=== PATIENT | female | born 1950 | race Caucasian/White ===

== ENCOUNTER 2019-07-30 10:24 | Outpatient (CLI) | payer MEDICARE, SELFPAY ==
[2019-07-30 10:36] LABS: Basophils Absolute Auto 0.03 K/mm3 (0.00-0.10); Basophils Percent Auto 0.5 % (0.0-1.0); Eosinophils Absolute Auto 0.07 K/mm3 (0.02-0.50); Eosinophils Percent Auto 1.2 % (1.0-6.0); Hematocrit 39.7 % (35.0-42.0); Immature Granulocyte Absolute 0.02 K/mm3 (0.00-0.00); Immature Granulocyte Percent A 0.3 % (0.0-0.0); Lymphocytes Absolute Auto 1.46 K/mm3 (1.10-4.50); Lymphocytes Percent Auto 25.1 % (18.0-42.0); Mean Corpuscular HGB Conc 32.7 g/dL (32.0-36.0); Mean Corpuscular Hemoglobin 28.6 pg (27.0-31.0); Mean Corpuscular Volume 87.3 fL (78.0-102.0); Mean Platelet Volume 10.6 fl (9.2-11.8); Monocytes Absolute Auto 0.51 K/mm3 (0.10-0.90); Monocytes Percent Auto 8.8 % (2.0-11.0); Neutrophils Absolute Auto 3.7 K/mm3 (1.7-7.2); Neutrophils Percent Auto 64.1 % (50.0-70.0); Platelet Count Result 194 K/mm3 (150-420); Red Blood Count 4.55 M/mm3 (4.20-5.40); Red Cell Distribution Width 14.6 % (11.6-14.4); White Blood Count 5.8 K/mm3 (4.8-10.8)
[2019-07-30 10:39] LABS: Add Urine Microscopic? YES; Appearance Urine Clear (Clear); Bilirubin Urine Negative (Negative); Blood Urine Negative (Negative); Color Urine Yellow (Yellow); Glucose Urine UA Negative (Negative); Ketones Urine Trace (Negative); Leukocyte Esterase Ur Negative (Negative); Nitrate Urine Negative (Negative); Protein Urine Negative (Negative); Specific Grav Ur >= 1.030 (1.010-1.020); pH Urine 5.5 (5.0-8.0)
[2019-07-30 10:43] LABS: Bacteria Urine Trace /hpf; RBC Urine 0-2 /hpf (0-2); Squamous Epithelial Cell Urine Few /hpf (Few); WBC Urine 0-3 /hpf (0-3)
[2019-07-30 11:44] LABS: Alanine Aminotransferase 29 U/L (14-59); Albumin Level 3.9 g/dL (3.4-5.0); Alkaline Phosphatase 66 U/L (46-116); Anion Gap 13.8 mmol/L (7-16); Aspartate Amino Transferase 23 U/L (15-37); Bilirubin,Total 0.5 mg/dL (0.00-1.00); Blood Urea Nitrogen 28 mg/dL (7-18); Calcium 9.4 mg/dL (8.5-10.1); Carbon Dioxide 27 mmol/L (21-32); Chloride 107 mmol/L (98-108); Cholesterol 168 mg/dL (0-200); Creatine Kinase 75 U/L (26-192); Estimated Glomerular Filt Rate > 60; Ferritin 91 ng/mL (8-252); Free T4 Free Thyroxine 1.06 ng/dL (0.76-1.46); Glucose 92 mg/dL (70-99); HDL Direct 72 mg/dL (40-60); Iron 87 ug/dL (50-170); LDL Cholesterol Calculated 78 mg/dL (<130); Osmolality Calculated 303 mOsm/kg (285-295); Percent Iron Saturation 26 % (12-57); Potassium 3.8 mmol/L (3.5-5.1); Sodium 144 mmol/L (136-145); Thyroid Stimulating Hormone 2.22 uIU/mL (0.36-3.74); Total Protein 6.6 g/dL (6.4-8.2); Triglycerides 90 mg/dL (0-150)
[2019-08-01 20:27] LABS: Vitamin D 25 Hydroxy 45 ng/mL (30-100)
== END 2019-07-30 10:25 | disposition home or self-care (01) ==
PROVIDERS: PCP Internal Medicine; Visit Provider Internal Medicine
DX: R53.83 Other fatigue (principal); E78.5 Hyperlipidemia, unspecified; M81.0 Age-related osteoporosis without current pathological fracture; E55.9 Vitamin D deficiency, unspecified; E03.4 Atrophy of thyroid (acquired); E61.1 Iron deficiency
CPT/HCPCS: 36415; 80053; 80061; 81001; 82306; 82550; 82728; 83540; 83550; 84439; 84443; 85025

== ENCOUNTER 2019-08-25 09:31 | Outpatient (CLI) | payer MEDICARE, SELFPAY ==
--- NOTE | ~2019-08-25 | XR_ITS ---
XR hip LT min 2V DATE: 08/25/2019 09:50 INDICATION: Left hip pain. No known injury. TECHNIQUE: AP and lateral views COMPARISON: 01/10/2010 left hip FINDINGS: There is mild narrowing of the left hip joint space. No fracture or dislocation, avascular necrosis or bone destruction. The pubic symphysis and included left sacroiliac joint are intact. IMPRESSION: Mild degenerative change Reviewed, dictated and finalized at location A. IMPRESSION: Mild degenerative change
== END 2019-08-25 09:32 | disposition home or self-care (01) ==
PROVIDERS: PCP Internal Medicine; Visit Provider Internal Medicine
DX: M25.552 Pain in left hip (principal)
CPT/HCPCS: 73502

== ENCOUNTER 2019-10-12 13:56 | Outpatient (CLI) | payer MEDICARE, SELFPAY ==
--- NOTE | ~2019-10-12 | DEXA_ITS ---
BMD(1) Young-Adult(2) Age-Matched(3) Region (g/cm2) T-score Z-score WHO Classification L1 0.899 -2.0 -0.3 Osteopenia L2 0.927 -2.3 -0.7 Osteopenia L3 1.105 -0.9 0.8 Normal L4 1.177 -0.3 1.3 Normal L1-L4 1.042 -1.2 0.4 Osteopenia Trend: L1-L4 Change vs Change vs Measured Age BMD(1) Baseline Previous Date (years) (g/cm2) (%) (%) 10/12/2019 [age] 1.042 -4.3* 2.2 09/20/2016 [age] 1.020 -6.3* 8.3* 01/01/2010 59.4 0.942 -13.5* -13.5* 07[birth year]28/2006 56.0 1.089 baseline - * - Indicates significant change based on 95% confidence interval. 1 - Statistically 68% of repeat scans fall within 1SD (+- 0.010 g/cm2 for AP Spine L1-L4) 2 - [place] (Combined NHANES (ages 20-30) / Phase Holographic Imaging (ages 20-40)) AP Spine Reference Population (v112) 3 - Matched for Age, Weight (females 25-100 kg), Ethnic 11 - World Health Organization - Definition of Osteoporosis and Osteopenia for Women: Normal = T-score at or above -1.0 SD; Osteopenia = T-score between -1.0 and -2.5 SD; Osteoporosis = T-score at or below -2.5 SD; (WHO definitions only apply when a young healthy Women reference database is used to determine T-scores.) Printed: 10/12/2019 2:35:32 PM (13.60)76:3.00:50.00:12.0 0.00:9.54 0.60x1.05 21.2:%Fat=27.9% 0.00:0.00 0.00:0.00 Filename: [id number] Scan Mode: Standard;OneScan 37.[address] [id number] BMD(1) Young-Adult(2,7) Age-Matched(3) Region (g/cm2) T-score Z-score WHO Classification Neck Left 0.738 -2.2 -0.4 Osteopenia Right 0.706 -2.4 -0.7 Osteopenia Mean 0.722 -2.3 -0.5 Osteopenia Difference 0.032 -0.2 -0.2 - Total Left 0.775 -1.8 -0.3 Osteopenia Right 0.768 -1.9 -0.4 Osteopenia Mean 0.772 -1.9 -0.4 Osteopenia Difference 0.007 -0.1 -0.1 - Hip Pepin Length Comparison (mm) (Right = 99.1 mm) (Mean = 102.0 mm) (Left = 98.6 mm) Trend: Total Mean Change vs Change vs Measured Age BMD(1) Baseline Previous Date (years) (g/cm2) (%) (%) 10/12/2019 69.2 0.772 -4.8* -0.3 01/01/2010 59.4 0.774 -4.6* -4.6* 07[birth year]28/2006 56.0 0.811 baseline - * - Indicates significant change based on 95% confidence interval. 1 - Statistically 68% of repeat scans fall within 1SD (+- 0.010 g/cm2 for DualFemur Total) 2 - [place] (Combined NHANES (ages 20-30) / Phase Holographic Imaging (ages 20-40)) Femur Reference Population (v112) 3 - Matched for Age, Weight (females 25-100 kg), Ethnic 7 - DualFemur Total T-score difference is 0.1. Asymmetry is None. 11 - World Health Organization - Definition of Osteoporosis and Osteopenia for Women: Normal = T-score at or above -1.0 SD; Osteopenia = T-score between -1.0 and -2.5 SD; Osteoporosis = T-score at or below -2.5 SD; (WHO definitions only apply when a young healthy Women reference database is used to determine T-scores.) Printed: 10/12/2019 2:35:32 PM (13.60); Filename: [id number]; Right Femur; 17.3:%Fat=24.8%; Neck Angle (deg)= 65; Scan Mode: Standard 37.0 uGy; Left Femur; 16.4:%Fat=29.7%; Neck Angle (deg)= 68; Scan Mode: Standard 37.0 uGy [employer] [id number] Dear Leopoldo Velazquez, Your patient Starla Baird completed a BMD test on 10/12/2019 using the [employer] DXA System (analysis version: 13.60) manufactured by [employer]. The following summa
--- NOTE | ~2019-10-12 | MM_ITS ---
EXAMINATION: MM screening brian BI w kenzie HISTORY: Screening mammogram, family history of breast cancer in her mother. TECHNIQUE: Craniocaudal and mediolateral oblique 3-D tomosynthesis images were obtained and synthetic 2-D images were generated. CAD analysis was submitted and interpreted. COMPARISON: 09/26/2016 BREAST PARENCHYMAL COMPOSITION: There are scattered areas of fibroglandular density. FINDINGS: Scattered benign-appearing calcifications are present. There is no evidence of suspicious m ass, calcification, or architectural distortion to suggest malignancy in either breast. There has bee n no suspicious interval change. IMPRESSION: 1. No mammographic evidence of malignancy. 2. Recommend routine screening mammography in one year. BI-RADS Category 2: Benign finding(s). Reviewed, dictated and finalized at location A.
== END 2019-10-12 13:57 | disposition home or self-care (01) ==
LOC: CHSIMG 13:57
PROVIDERS: PCP Internal Medicine; Visit Provider Internal Medicine
DX: Z12.31 Encounter for screening mammogram for malignant neoplasm of breast (principal); M81.0 Age-related osteoporosis without current pathological fracture
CPT/HCPCS: 77063; 77067; 77080

== ENCOUNTER 2020-08-01 14:47 | Outpatient (RCR) | payer MEDICARE, SELFPAY ==
--- NOTE | 2020-08-01 15:54 | PTOPEVAL ---
Thank you for referring Starla Baird to [facility].? The patient is scheduled to be seen for therapy? ____x/week for ___ weeks. Please review, sign, date and return this plan of care TANYA. I agree with and certify that the following plan of care is medically necessary. Referring Physician Date Admitting Provider: Attending Provider: Leopoldo Velazquez MD Referring Provider: *PT Outpatient Evaluation Start: 08/01/20 14:49 Freq: Status: Active Protocol: Document 08/01/20 14:49 ACR (Rec: 08/01/20 15:42 ACR [id number]) Therapy Assessment Status Assessment Status Assessment Status Evaluation Outpatient Past Medical History Neurological History Hx Neurological Disorders No Significant History Cardiovascular History Hx Cardiac Disorders No Significant History Respiratory History Hx Respiratory Disorders No Significant History Gastrointestinal History Hx Other Gastrointestinal Disorders Yes: gastric reflux Genitourinary History Hx Genitourinary Disorders No Significant History Musculoskeletal History Hx Other Musculoskeletal Disorders Yes: disc 22 yrs ago L ankle 33 yrsa ago Hematological History Hx Hematological Disorders No Significant History Endocrine History Hx Hypothyroidism Yes HEENT History Hx Cataracts Yes: jeremiah surgery 18months ago Hx Meniere's Syndrome Yes Integumentary History Hx Excision Skin Lesion Yes: nose 10months ago Reproductive History Hx Tubal Ligation Yes: 28 yrs ago Psychosocial History Hx Anxiety Yes Pain History History of Any Previous or Ongoing No Significant History Instance of Pain Anesthesia History Hx Anesthesia Reactions No Significant History Other History Hx Cancer Yes: basel cell Hx Other Surgeries Yes: R shoulder 15yrs ago Evaluation Information Problem Diagnosis L hip pain, bursitis Onset 06/03/20 Subjective Information Patient states that for a Query Text:As Reported By Patient/ couple months the pain is off Family and on. Patient states the pain is the worst if she walks or does stairs. Patient states the pain is all the time not just in the morning or in the evening. The pain is not waking her up at night. Patient states that standing for prolonged periods of time does not make it any worse. She states sitting for long periods of time really bother
--- NOTE | 2020-10-20 10:28 | PCPTNOTE ---
The patient is a 70 year old female that participated in 5 visits for L hip pain, bursitis. The patient underwent and MRI which showed gluteus minimus muscle tear and bursitis. She is doing better, but she is following up with her MD soon and is still performing her HEP. She would like to be discharged at this time. Please refer to last treatment note for discharge status. Thank you, Stefany Rahman DPT
== END 2020-09-05 13:28 | disposition home or self-care (01) ==
LOC: CHSPT 14:47
PROVIDERS: PCP Internal Medicine; Visit Provider Internal Medicine
DX: M70.62 Trochanteric bursitis, left hip (principal)
CPT/HCPCS: 97014; 97110; 97140; 97161; G0283

== ENCOUNTER 2020-09-09 08:48 | Outpatient (CLI) | payer MEDICARE, SELFPAY ==
--- NOTE | ~2020-09-09 | MR_ITS ---
EXAMINATION: MR hip LT wo con DATE: 09/09/2020 09:49 INDICATION: Left hip pain. TECHNIQUE: Magnetic resonance imaging (MRI) of the left hip was performed without intravenous contras t. Sequences included axial and coronal PD-weighted FS FSE and axial T1-weighted FSE of the pelvis. S equences of the hip included 2D FIESTA, T1-weighted fast GRE, and axial, coronal, and sagittal PD-moreno ghted FS FSE. COMPARISON: Left hip radiographs 08/25/2019 FINDINGS: Bones/cartilage: Bone alignment is normal. No fracture. There is mild osteoarthritis of the hips bilaterally. Small fi eld-of-view images of left hip demonstrate partial thickness cartilage loss and tiny osteophytes. Labrum: There is a tear of the left acetabular labrum. Fluid: There is no hip joint effusion. There is mild left-sided trochanteric bursitis. Soft tissues: There are chronic partial tears of the hamstring origins bilaterally. The iliopsoas tendons are alice l. There is a partial tear of the left gluteus minimus tendon. The left gluteus medius tendon is inta ct. The right gluteal tendons are obscured by failure of fat saturation. IMPRESSION: 1. No fracture. 2. Mild osteoarthritis of the hips. 3. Partial tears of left gluteus minimus tendon. 4. Mild left trochanteric bursitis. Reviewed, dictated and finalized at location A.
== END 2020-09-09 08:49 | disposition home or self-care (01) ==
LOC: CHSIMG 08:49
PROVIDERS: PCP Internal Medicine; Visit Provider Internal Medicine
DX: M25.552 Pain in left hip (principal)
CPT/HCPCS: 73721

== ENCOUNTER 2021-01-12 11:47 | Outpatient (CLI) | payer MEDICARE, SELFPAY ==
[2021-01-12 13:30] LABS: SARS-CoV-2 RNA PCR Negative (Negative)
== END 2021-01-12 11:48 | disposition home or self-care (01) ==
LOC: CHSLAB 11:50
PROVIDERS: PCP Internal Medicine; Visit Provider Nurse Practitioner Family
DX: Z20.822 Contact with and (suspected) exposure to COVID-19 (principal)
CPT/HCPCS: C9803; U0003; U0005

== ENCOUNTER 2021-03-29 22:25 | Emergency (ER) | payer MEDICARE, SELFPAY ==
[2021-03-29 22:29] VITALS: BP 192/82; PULSE 85; RESP 16; TEMP 36.8; O2SAT 100
--- NOTE | 2021-03-29 22:29 | ECG_ITS ---
Measurements Intervals Celestine Rate: 73 P: 26 VT: 171 QRS: 0 QRSD: 76 T: 50 QT: 394 QTc: 436 Interpretive Statements SINUS RHYTHM VOLTAGE CRITERIA FOR LVH BASELINE ARTIFACT- I, II, III, AVR, AVL, AVF, V2-V6 BORDERLINE ECG Electronically Signed On 03-30-2021 5:40:45 UNIT DIRECTOR by Efraín Lambert D.O.
[2021-03-29 22:34] VITALS: PULSE 85
--- NOTE | 2021-03-29 22:40 | ED.GENADULT ---
HPI - General Adult General Chief complaint: Unspecified Stated complaint: high blood pressure Source: patient Mode of arrival: ambulatory Limitations: no limitations History of Present Illness HPI narrative: Starla is a 70F with a PMH of hypothyroidism, HLD and osteoporosis that presented to the emergency department with elevated BP. She was recently diagnosed at her PCPs office but was not started on meds. Tonight she started having tinglin in her lips and fingers so she took her BP and is was over 200 so she came in. She denies CP, SOB, N/V, lightheadedness and syncope. Related Data Home Medications Medication Instructions Recorded Confirmed alendronate 70 mg PO WEEKLY 04/01/19 04/01/19 atorvastatin 10 mg PO DAILY 04/01/19 04/01/19 citalopram 10 mg PO DAILY 04/01/19 04/01/19 levothyroxine 25 mcg PO DAILY 04/01/19 04/01/19 Allergies Allergy/AdvReac Type Severity Reaction Status Date / Time No Known Allergies Allergy Unknown Verified 05/07/06 16:31 Review of Systems Constitutional: Constitutional: Reports no additional constitutional complaints Eyes: Eyes: Reports no additional eye complaints ENT: Reports system reviewed and no additional complaints, except as documented Cardiovascular: Cardiovascular: Reports as per HPI Respiratory: Respiratory: Reports no additional respiratory complaints Gastrointestinal: Gastrointestinal: Reports no additional gastrointestinal complaints Genitourinary: Genitourinary: Reports no additional female genitourinary complaints Musculoskeletal: Musculoskeletal: Reports no additional musculoskeletal complaints Integumentary/Breasts: Skin/Breast: Reports system reviewed and no additional complaints, except as docu Neurologic: Reports system reviewed and no additional complaints, except as documented Psychiatric: Psychiatric: Reports no additional psychiatric complaints Endocrine: Endocrine: Reports no additional endocrine complaints Hematologic/Lymphatic: Hematologic/Lymphatic: Reports no additional hematologic/lymphatic complaints Allergic/Immunologic: Allergic/Immunologic: Reports no additional allergic/immunologic complaints [facility] Past Medical History Medical History (Updated 03/29/21 @ 23:19 by Jimmy Jones DO) Depression Dyslipidemia Hypothyroid Osteoporosis Surgical History Surgical History History of ankle surgery Social History Social History Smoking status: Never smoker Second hand tobacco smoke exposure: Yes Alcohol intake: current Substance use: never Substance use type: does not use Gender identity (if verbalized by the patient): Female Agree to blood products: Yes Exam Const: General: cooperative, healthy appearing, comfortable and no acute distress HENMT: Head: normal to inspection and normocephalic Eyes: General: appearance normal, both eyes and all related structures Neck: Neck: normal visual inspection Chest: Chest palpation & inspection: normal inspection of the chest Resp: Effort & Inspection: normal respiratory effort Auscultation: clear to auscultation bilaterally Cardio: Rate: regular rate Rhythm: regular rhythm Other: no murmur Back/Spine/Pelvis: Back: no CVA tenderness Skin: General skin exam: normal color and no rashes or lesions noted Neuro: General: oriented to person, oriented to place, oriented to time and gait normal Cranial nerves: Yes CN's II-XII intact bilaterally Cognition (Neuro): normal cognition Speech: normal speech Gait exam (Neuro): Normal gait present Extrem: General: normal to inspection Psych: Appearance: grossly normal Course Course Emergency Course: ordered EKG, labs and gave a dose of amlodipine. EKG showed a NSR with a rate of 73, normal axis, and no ectopy Labs largely unremarkable Vital Signs Vital signs: Vital Signs Temperature 98.2 F 12
[2021-03-29] MEDS: amLODIPine BESYLATE 5 MG TABLET 10 MG PO (22:55)
[2021-03-29 23:10] LABS: Anion Gap 13 mmol/L (8-16); Blood Urea Nitrogen 22 mg/dL (7-18); Calcium 8.9 mg/dL (8.5-10.1); Carbon Dioxide 23 mmol/L (21-32); Chloride 105 mmol/L (98-108); Estimated CRCL calculation 54 ml/min; Estimated Glomerular Filt Rate > 60; Glucose 107 mg/dL (70-99); NT Pro B Type Natriuretic Pept 151 pg/mL (0-125); Osmolality Calculated 295 mOsm/kg (285-295); Potassium 3.9 mmol/L (3.5-5.1); Sodium 141 mmol/L (136-145); Troponin I 7.4 ng/L (0.00-60.4)
[2021-03-29 23:29] VITALS: BP 166/72; PULSE 88; RESP 18; O2SAT 100
== END 2021-03-29 23:30 | disposition home or self-care (01) ==
PROVIDERS: Emergency Provider Family Medicine; PCP Internal Medicine
DX: I16.0 Hypertensive urgency (principal); E78.5 Hyperlipidemia, unspecified; E03.9 Hypothyroidism, unspecified; M81.0 Age-related osteoporosis without current pathological fracture
CPT/HCPCS: 36415; 80048; 83880; 84484; 93005; 99283; 99284; A9270

== ENCOUNTER 2021-04-17 15:17 | Outpatient (CLI) | payer MEDICARE, SELFPAY ==
--- NOTE | 2021-05-03 16:21 | WPDHOLTEREM ---
Holter/Event Monitor Holter/Event Monitor Date of procedure: 04/17/21 Holter/Event Procedure: Event Monitor Indications: Palpitations Conclusion: 1. 13 days event monitor between 04/17/21-05/03/21. There are 27 available transmissions for analysis. 2. Predominant rhythm is sinus rhythm. HR range 46-151 bpm; average HR 65 bpm. HR at 151 bpm was on 04/22/21 at 14:42. 3. There are occasional premature supraventricular complexes with 1% burden. No supraventricular tachycardia. 4. There are occasional premature ventricular complexes with total burden of <1%. There is 1 episode of ventricular tachycardia at 140 bpm lasting 4 beats on 04/27/21 at 01:48. 5. No significant pauses greater than 2 seconds. 6. Patient reports 2 episodes of symptoms of heart racing which demonstrate sinus rhythm, HR range 51-75 bpm and one atrial couplet.
== END 2021-04-17 15:18 | disposition home or self-care (01) ==
LOC: CHSCARD 15:19
PROVIDERS: PCP Internal Medicine; Visit Provider Internal Medicine
DX: R00.2 Palpitations (principal)
CPT/HCPCS: 93270

== ENCOUNTER 2021-05-03 10:10 | Outpatient (CLI) | payer MEDICARE, SELFPAY ==
--- NOTE | 2021-05-03 10:21 | ECHO_ITS ---
Patient Info Name: Starla Baird Age: 70 years : 1950 Gender: Female Ht: 62 in Wt: 145 lbs BSA: 1.71 m2 HR: 57 bpm BP: 122 / 56 mmHg Technical Quality: Good Exam Date: 05/03/2021 11:09 AM Exam Location: [facility] Patient Status: Outpatient Admit Date: 05/03/2021 Staff Ordering Physician: Leopoldo Velazquez MD Mock Up Assembler: Stephanie Landers Attending Provider: Leopoldo Velazquez MD Referring Physician: Marcus SANTOYO; Exam Type: CA echo doppler color flow Study Info Indications I48.1 - Persistent atrial fibrillation Complete two-dimensional, color flow and Doppler transthoracic echocardiogram is performed. Strain analysis performed. Summary 1. Complete two-dimensional, color flow and Doppler transthoracic echocardiogram is performed. 2. Left ventricular chamber dimension is normal. 3. Left ventricular systolic function is normal, estimated at 60-65%. 4. The left ventricular diastolic function is grade I diastolic dysfunction. 5. E/e' 6 is not elevated. 6. Global longitudinal strain is normal at -20.2%. 7. Left atrial chamber dimension is mildly enlarged. 8. There is mild aortic valve sclerosis. 9. There is mild aortic valve regurgitation. 10. There is trace mitral valve regurgitation. 11. There is trace tricuspid valve regurgitation. 12. No pulmonary hypertension, estimated pulmonary arterial systolic pressure is 33 mmHg. Left Ventricle E/e' 6 is not elevated. Global longitudinal strain is normal at -20.2%. Left ventricular chamber dimension is normal. Left ventricular systolic function is normal, estimated at 60-65%. The left ventricular diastolic function is grade I diastolic dysfunction. Right Ventricle Right ventricular systolic function is normal and with normal TAPSE 2.1 cm. Right ventricular chamber dimension is normal. Left Atria Left atrial chamber dimension is mildly enlarged. Right Atria Right atrial chamber dimension is normal. Aortic Valve The aortic valve is trileaflet. There is mild aortic valve sclerosis. There is no aortic valve stenosis. There is mild aortic valve regurgitation. Pulmonic Valve There is no pulmonic regurgitation. Mitral Valve There is no mitral valve stenosis. There is trace mitral valve regurgitation. Tricuspid Valve There is trace tricuspid valve regurgitation. No pulmonary hypertension, estimated pulmonary arterial systolic pressure is 33 mmHg. Pericardium/Pleural There is no pericardial effusion. Inferior Vena Cava Normal inferior vena cava with >50% collapse upon inspiration consistent with normal right atrial pressure, 5 mmHg. Aorta The aortic root size at the sinus of Valsalva is normal. Left Ventricular Outflow Tract Name Value Normal LVOT 2D LVOT Diameter 1.9 cm LVOT Doppler LVOT Peak Velocity 138 cm/s LVOT Peak Gradient 8 mmHg LVOT Mean Gradient 5 mmHg LVOT VTI 35 cm LVOT VTI/AV VTI Ratio 0.9 LVOT Stroke Volume 101 ml Mitral Valve
== END 2021-05-03 10:11 | disposition home or self-care (01) ==
LOC: CHSIMG 10:13
PROVIDERS: PCP Internal Medicine; Visit Provider Internal Medicine
DX: I48.91 Unspecified atrial fibrillation (principal)
CPT/HCPCS: 93306

== ENCOUNTER 2021-09-13 10:47 | Outpatient (CLI) | payer MEDICARE, SELFPAY ==
[2021-09-13 11:07] LABS: Basophils Absolute Auto 0.04 K/mm3 (0.00-0.10); Basophils Percent Auto 0.4 % (0.0-1.0); Eosinophils Absolute Auto 0.12 K/mm3 (0.02-0.50); Eosinophils Percent Auto 1.3 % (1.0-6.0); Hematocrit 41.5 % (35.0-42.0); Hemoglobin 13.6 g/dL (11.7-13.8); Immature Granulocyte Absolute 0.04 K/mm3 (0.00-0.00); Immature Granulocyte Percent A 0.4 % (0.0-0.0); Lymphocytes Absolute Auto 2.68 K/mm3 (1.10-4.50); Mean Corpuscular HGB Conc 32.8 g/dL (32.0-36.0); Mean Corpuscular Hemoglobin 29.3 pg (27.0-31.0); Mean Corpuscular Volume 89.4 fL (78.0-102.0); Mean Platelet Volume 9.9 fl (9.2-11.8); Monocytes Absolute Auto 0.85 K/mm3 (0.10-0.90); Monocytes Percent Auto 8.9 % (2.0-11.0); Neutrophils Absolute Auto 5.8 K/mm3 (1.7-7.2); Platelet Count Result 241 K/mm3 (150-420); Red Blood Count 4.64 M/mm3 (4.20-5.40); Red Cell Distribution Width 13.9 % (11.6-14.4); White Blood Count 9.6 K/mm3 (4.8-10.8)
[2021-09-13 11:15] LABS: Creatinine Urine 194.65 mg/dL (40-278); MALB Creatinine Ratio 31.6 mg/g (0-30); Microalbumin Urine Random 61.7 mg/L
[2021-09-13 11:16] LABS: Appearance Urine Clear (Clear); Bilirubin Urine Negative (Negative); Color Urine Light Yellow (Yellow); Glucose Urine UA Negative (Negative); Ketones Urine Negative (Negative); Leukocyte Esterase Ur 2+ (Negative); Nitrate Urine Negative (Negative); Protein Urine Negative (Negative); Specific Grav Ur 1.025 (1.010-1.020); Urobilinogen Urine 0.2 mg/dL (0.2-1.0)
[2021-09-13 11:24] LABS: Add Urine Microscopic? YES; Blood Urine Trace-Intact (Negative); RBC Urine None seen /hpf (0-2); Squamous Epithelial Cell Urine Moderate /hpf (Few)
[2021-09-13 11:25] LABS: Bacteria Urine Trace /hpf; Mucus Urine Moderate /lpf
[2021-09-13 11:50] LABS: Alanine Aminotransferase 31 U/L (14-59); Albumin Level 3.9 g/dL (3.4-5.0); Alkaline Phosphatase 87 U/L (46-116); Anion Gap 11 mmol/L (8-16); Aspartate Amino Transferase 18 U/L (15-37); Bilirubin,Total 0.7 mg/dL (0.00-1.00); Blood Urea Nitrogen 15 mg/dL (7-18); Carbon Dioxide 27 mmol/L (21-32); Chloride 104 mmol/L (98-108); Cholesterol 191 mg/dL (0-200); Creatine Kinase 59 U/L (26-192); Estimated Glomerular Filt Rate > 60; Free T3 2.17 pg/mL (2.18-3.98); Free T4 Free Thyroxine 0.98 ng/dL (0.76-1.46); Glucose 103 mg/dL (70-99); HDL Direct 56 mg/dL (40-60); LDL Cholesterol Calculated 103 mg/dL (<130); NT Pro B Type Natriuretic Pept 121 pg/mL (0-125); Osmolality Calculated 294 mOsm/kg (285-295); Potassium 3.7 mmol/L (3.5-5.1); Sodium 142 mmol/L (136-145); Thyroid Stimulating Hormone 4.56 uIU/mL (0.36-3.74); Total Protein 7.5 g/dL (6.4-8.2); Triglycerides 159 mg/dL (0-150)
[2021-09-13 12:00] LABS: CRP < 0.2 mg/dL (0.0-0.9)
[2021-09-13 12:11] LABS: INR 1.3; Prothrombin Time 13.7 Seconds (9.50-12.10)
[2021-09-13 12:21] LABS: Erythrocyte Sedimentation Rate 41 mm/hr (0-20)
[2021-09-18 19:31] LABS: Vitamin D 25 Hydroxy 48 ng/mL (30-100)
== END 2021-09-13 10:48 | disposition home or self-care (01) ==
LOC: CHSLAB 10:50
PROVIDERS: PCP Internal Medicine; Visit Provider Internal Medicine
DX: R53.82 Chronic fatigue, unspecified (principal); I10 Essential (primary) hypertension; M81.0 Age-related osteoporosis without current pathological fracture; E03.9 Hypothyroidism, unspecified; E78.2 Mixed hyperlipidemia; I48.0 Paroxysmal atrial fibrillation; I50.9 Heart failure, unspecified; Z79.01 Long term (current) use of anticoagulants
CPT/HCPCS: 36415; 80053; 80061; 81001; 82043; 82306; 82550; 83880; 84439; 84443; 84481; 85025; 85610; 85652; 86140

== ENCOUNTER 2021-10-30 11:51 | Outpatient (CLI) | payer MEDICARE, SELFPAY ==
[2021-10-30 12:13] LABS: Add Urine Microscopic? YES; Appearance Urine Clear (Clear); Bilirubin Urine Negative (Negative); Blood Urine 1+ (Negative); Color Urine Light Yellow (Yellow); Glucose Urine UA Negative (Negative); Ketones Urine Negative (Negative); Leukocyte Esterase Ur 1+ (Negative); Nitrate Urine Negative (Negative); Protein Urine Negative (Negative); Specific Grav Ur 1.025 (1.010-1.020); Urobilinogen Urine 0.2 mg/dL (0.2-1.0)
[2021-10-30 12:17] LABS: Bacteria Urine Trace /hpf; Mucus Urine Moderate /lpf; Squamous Epithelial Cell Urine Few /hpf (Few)
[2021-10-30 12:55] LABS: Alanine Aminotransferase 33 U/L (14-59); Alkaline Phosphatase 86 U/L (46-116); Anion Gap 9 mmol/L (8-16); Aspartate Amino Transferase 21 U/L (15-37); Bilirubin,Total 0.6 mg/dL (0.00-1.00); Blood Urea Nitrogen 14 mg/dL (7-18); Carbon Dioxide 27 mmol/L (21-32); Chloride 104 mmol/L (98-108); Cholesterol 182 mg/dL (0-200); Estimated Glomerular Filt Rate > 60; Free T3 2.37 pg/mL (2.18-3.98); Free T4 Free Thyroxine 1.15 ng/dL (0.76-1.46); Glucose 101 mg/dL (70-99); HDL Direct 57 mg/dL (40-60); LDL Cholesterol Calculated 99 mg/dL (<130); Osmolality Calculated 290 mOsm/kg (285-295); Potassium 3.9 mmol/L (3.5-5.1); Sodium 140 mmol/L (136-145); Thyroid Stimulating Hormone 1.33 uIU/mL (0.36-3.74); Total Protein 6.8 g/dL (6.4-8.2); Triglycerides 129 mg/dL (0-150)
[2021-10-30 13:29] LABS: INR 3.2; Prothrombin Time 32.1 Seconds (9.50-12.10)
[2021-11-03 21:40] LABS: Vitamin D 25 Hydroxy 60 ng/mL (30-100)
== END 2021-10-30 11:52 | disposition home or self-care (01) ==
LOC: CHSLAB 11:53
PROVIDERS: PCP Internal Medicine; Visit Provider Internal Medicine
DX: E03.9 Hypothyroidism, unspecified (principal); E78.2 Mixed hyperlipidemia; M81.0 Age-related osteoporosis without current pathological fracture; N39.0 Urinary tract infection, site not specified; Z79.01 Long term (current) use of anticoagulants
CPT/HCPCS: 36415; 80053; 80061; 81001; 82306; 84439; 84443; 84481; 85610; 87086

== ENCOUNTER 2021-11-20 12:27 | Outpatient (CLI) | payer MEDICARE, SELFPAY ==
--- NOTE | ~2021-11-20 | DEXA_ITS ---
Bone Density Report Name: CLOVIS HERRERA Age: 71 Sex: Female Ethnicity: White Date of : 1950 Indication: postmenopausal; screening for osteoporosis; height loss; prior fracture; Referring Provider: Leopoldo Velazquez Study: Bone densitometry was performed. Exam Date: November 20, 2021 Accession number: [id number] Bone Density: Region BMD T-score Z-score Classification AP Spine(L1, L2, L3) 0.867 -1.4 0.9 Osteopenia Femoral Neck (Left) 0.628 -2.0 0.0 Osteopenia Total Hip (Left) 0.767 -1.4 0.3 Osteopenia Femoral Neck (Right) 0.615 -2.1 -0.1 Osteopenia Total Hip (Right) 0.744 -1.6 0.1 Osteopenia Femoral Neck Mean 0.621 -2.1 -0.1 Osteopenia Total Hip Mean 0.755 -1.5 0.2 Osteopenia World Health Organization criteria for BMD impression classify patients as: Normal (T-score at or above -1.0), Osteopenia (T-score between -1.0 and -2.5), or Osteoporosis (T-score at or below -2.5). 10-year Fracture Risk: FRAX not reported because: Treated for osteoporosis Clinical Information Provided by Patient: Has had a low trauma fracture Is being treated for osteoporosis Has used the following medications: Fosamax (i.e. alendronate), Vitamin D Patient maximum height was 62 Menopause Age: 48 No regular weight bearing exercise Drinks caffeinated beverages Onset of menses at age 12 Number of children 6 Impression: The patient has low bone mass, based on the Right Femoral Neck T-score. The patient has risk factors, including: previous fracture. Discussion: It is important to ask patients whether they are taking their medications and to encourage continued and appropriate compliance with their osteoporosis therapies to reduce fracture risk. It is also important to review their risk factors and encourage appropriate calcium and vitamin D intakes, exercise, fall prevention and other lifestyle measures. Follow-Up: Consider a repeat BMD and Vertebral Fracture Assessment (VFA) exam in 2 years or sooner if medically necessary, to reassess this patient's status. Reported by: Dr. David Ruffin on 11/20/2021 12:52:00 PM. Reviewed, dictated and finalized at location AChuckie LI
== END 2021-11-20 12:28 | disposition home or self-care (01) ==
LOC: CHSIMG 12:30
PROVIDERS: PCP Internal Medicine; Visit Provider Internal Medicine
DX: M81.0 Age-related osteoporosis without current pathological fracture (principal)
CPT/HCPCS: 77080

== ENCOUNTER 2022-01-18 12:20 | Outpatient (CLI) | payer MEDICARE, SELFPAY ==
--- NOTE | ~2022-01-18 | CT_ITS ---
EXAMINATION: CT sinus wo con DATE: 01/18/2022 12:36 INDICATION: Chronic pansinusitis TECHNIQUE: Computed tomography (CT) of the paranasal sinuses was performed without intravenous contra st. The dose-length product was 328.15 mGy-cm. Automated exposure control and iterative reconstructio n technique were employed. COMPARISON: CT dated 04/02/2019 FINDINGS: There is mild mucosal thickening of the maxillary sinuses. No air-fluid levels. No mucoperi osteal reaction. There is rightward nasal septal deviation. Ostiomeatal units are patent. Mastoids ar e pneumatized. IMPRESSION: 1. Mild maxillary sinus disease. Reviewed, dictated and finalized at location A.
== END 2022-01-18 12:21 | disposition home or self-care (01) ==
LOC: CHSIMG 12:22
PROVIDERS: PCP Internal Medicine; Visit Provider Internal Medicine
DX: J32.4 Chronic pansinusitis (principal)
CPT/HCPCS: 70486

== ENCOUNTER 2022-03-28 11:49 | Outpatient (CLI) | payer MEDICARE, SELFPAY ==
[2022-03-28 12:56] LABS: Influenza A QL RT-PCR Negative (Negative); Influenza B QL RT-PCR Negative (Negative); SARS-CoV-2 RNA PCR Negative (Negative)
== END 2022-03-28 11:50 | disposition home or self-care (01) ==
LOC: CHSLAB 11:50
PROVIDERS: PCP Internal Medicine; Visit Provider Family Medicine
DX: J06.9 Acute upper respiratory infection, unspecified (principal); Z20.822 Contact with and (suspected) exposure to COVID-19
CPT/HCPCS: 87636

== ENCOUNTER 2022-05-10 14:26 | Outpatient (CLI) | payer MEDICARE, SELFPAY ==
[2022-05-10 14:44] LABS: Basophils Absolute Auto 0.05 K/mm3 (0.00-0.10); Basophils Percent Auto 0.6 % (0.0-1.0); Eosinophils Absolute Auto 0.07 K/mm3 (0.02-0.50); Eosinophils Percent Auto 0.8 % (1.0-6.0); Hematocrit 43.3 % (35.0-42.0); Hemoglobin 14.1 g/dL (11.7-13.8); Immature Granulocyte Absolute 0.03 K/mm3 (0.00-0.00); Immature Granulocyte Percent A 0.4 % (0.0-0.0); Lymphocytes Absolute Auto 2.71 K/mm3 (1.10-4.50); Lymphocytes Percent Auto 31.7 % (18.0-42.0); Mean Corpuscular HGB Conc 32.6 g/dL (32.0-36.0); Mean Corpuscular Hemoglobin 29.9 pg (27.0-31.0); Mean Corpuscular Volume 91.9 fL (78.0-102.0); Mean Platelet Volume 9.8 fl (9.2-11.8); Monocytes Absolute Auto 0.71 K/mm3 (0.10-0.90); Monocytes Percent Auto 8.3 % (2.0-11.0); Neutrophils Percent Auto 58.2 % (50.0-70.0); Platelet Count Result 257 K/mm3 (150-420); Red Blood Count 4.71 M/mm3 (4.20-5.40); Red Cell Distribution Width 13.9 % (11.6-14.4); White Blood Count 8.6 K/mm3 (4.8-10.8)
[2022-05-10 14:46] LABS: Add Urine Microscopic? YES; Appearance Urine Clear (Clear); Bilirubin Urine Negative (Negative); Blood Urine Negative (Negative); Color Urine Yellow (Yellow); Glucose Urine UA Negative (Negative); Ketones Urine Negative (Negative); Leukocyte Esterase Ur Trace (Negative); Nitrate Urine Negative (Negative); Protein Urine Negative (Negative); Specific Grav Ur >= 1.030 (1.010-1.020); Urobilinogen Urine 0.2 mg/dL (0.2-1.0); pH Urine 5.5 (5.0-8.0)
[2022-05-10 14:56] LABS: Bacteria Urine 1+ /hpf; Mucus Urine Moderate /lpf; RBC Urine None seen /hpf (0-2); Squamous Epithelial Cell Urine Few /hpf (Few)
[2022-05-10 15:09] LABS: Hemoglobin A1C 5.4 % (<5.7)
[2022-05-10 15:29] LABS: Alanine Aminotransferase 33 U/L (14-59); Albumin Level 4.1 g/dL (3.4-5.0); Alkaline Phosphatase 128 U/L (46-116); Anion Gap 9 mmol/L (8-16); Aspartate Amino Transferase 19 U/L (15-37); Bilirubin,Total 0.7 mg/dL (0.00-1.00); Blood Urea Nitrogen 17 mg/dL (7-18); Calcium 9.2 mg/dL (8.5-10.1); Carbon Dioxide 30 mmol/L (21-32); Chloride 104 mmol/L (98-108); Cholesterol 201 mg/dL (0-200); Estimated Glomerular Filt Rate > 60; Free T4 Free Thyroxine 1.05 ng/dL (0.76-1.46); Glucose 105 mg/dL (70-99); HDL Direct 53 mg/dL (40-60); LDL Cholesterol Calculated 114 mg/dL (<130); Osmolality Calculated 297 mOsm/kg (285-295); Potassium 3.8 mmol/L (3.5-5.1); Sodium 143 mmol/L (136-145); Thyroid Stimulating Hormone 2.32 uIU/mL (0.36-3.74); Total Protein 7.4 g/dL (6.4-8.2); Triglycerides 168 mg/dL (0-150)
== END 2022-05-10 14:27 | disposition home or self-care (01) ==
LOC: CHSLAB 14:29
PROVIDERS: PCP Internal Medicine; Visit Provider Internal Medicine
DX: E78.2 Mixed hyperlipidemia (principal); I10 Essential (primary) hypertension; I48.0 Paroxysmal atrial fibrillation; E03.9 Hypothyroidism, unspecified; R73.01 Impaired fasting glucose
CPT/HCPCS: 36415; 80053; 80061; 81001; 83036; 84439; 84443; 85025

== ENCOUNTER 2022-11-07 12:18 | Outpatient (CLI) | payer MEDICARE, SELFPAY ==
[2022-11-07 12:31] LABS: Basophils Absolute Auto 0.05 K/mm3 (0.00-0.10); Basophils Percent Auto 0.7 % (0.0-1.0); Eosinophils Absolute Auto 0.09 K/mm3 (0.02-0.50); Eosinophils Percent Auto 1.2 % (1.0-6.0); Hematocrit 42.2 % (35.0-42.0); Immature Granulocyte Absolute 0.02 K/mm3 (0.00-0.00); Immature Granulocyte Percent A 0.3 % (0.0-0.0); Lymphocytes Absolute Auto 2.21 K/mm3 (1.10-4.50); Lymphocytes Percent Auto 29.6 % (18.0-42.0); Mean Corpuscular HGB Conc 33.2 g/dL (32.0-36.0); Mean Corpuscular Hemoglobin 28.7 pg (27.0-31.0); Mean Corpuscular Volume 86.7 fL (78.0-102.0); Mean Platelet Volume 10.1 fl (9.2-11.8); Monocytes Absolute Auto 0.63 K/mm3 (0.10-0.90); Monocytes Percent Auto 8.4 % (2.0-11.0); Neutrophils Absolute Auto 4.5 K/mm3 (1.7-7.2); Neutrophils Percent Auto 59.8 % (50.0-70.0); Platelet Count Result 224 K/mm3 (150-420); Red Blood Count 4.87 M/mm3 (4.20-5.40); Red Cell Distribution Width 13.9 % (11.6-14.4); White Blood Count 7.5 K/mm3 (4.8-10.8)
[2022-11-07 12:38] LABS: Appearance Urine Clear (Clear); Bilirubin Urine Negative (Negative); Blood Urine Trace-Intact (Negative); Color Urine Yellow (Yellow); Glucose Urine UA Negative (Negative); Ketones Urine Negative (Negative); Leukocyte Esterase Ur Trace (Negative); Nitrate Urine Negative (Negative); Protein Urine Negative (Negative); Specific Grav Ur 1.025 (1.010-1.020)
[2022-11-07 12:45] LABS: Add Urine Microscopic? YES; RBC Urine 0-2 /hpf (0-2); WBC Urine 0-3 /hpf (0-3)
[2022-11-07 12:46] LABS: Bacteria Urine Trace /hpf; Mucus Urine Few /lpf; Squamous Epithelial Cell Urine Moderate /hpf (Few)
[2022-11-07 13:18] LABS: Alanine Aminotransferase 22 U/L (14-59); Albumin Level 3.7 g/dL (3.4-5.0); Alkaline Phosphatase 99 U/L (46-116); Anion Gap 7 mmol/L (8-16); Aspartate Amino Transferase 13 U/L (15-37); Bilirubin,Total 0.8 mg/dL (0.00-1.00); Blood Urea Nitrogen 21 mg/dL (7-18); Calcium 9.2 mg/dL (8.5-10.1); Carbon Dioxide 31 mmol/L (21-32); Chloride 105 mmol/L (98-108); Cholesterol 216 mg/dL (0-200); Creatine Kinase 37 U/L (26-192); Estimated Glomerular Filt Rate > 60; Free T3 2.21 pg/mL (2.18-3.98); Free T4 Free Thyroxine 1.03 ng/dL (0.76-1.46); Glucose 94 mg/dL (70-99); HDL Direct 55 mg/dL (40-60); LDL Cholesterol Calculated 136 mg/dL (<130); NT Pro B Type Natriuretic Pept 123 pg/mL (0-125); Osmolality Calculated 299 mOsm/kg (285-295); Potassium 4.2 mmol/L (3.5-5.1); Sodium 143 mmol/L (136-145); Thyroid Stimulating Hormone 2.83 uIU/mL (0.36-3.74); Total Protein 6.7 g/dL (6.4-8.2); Triglycerides 123 mg/dL (0-150)
== END 2022-11-07 12:19 | disposition home or self-care (01) ==
LOC: CHSLAB 12:20
PROVIDERS: PCP Internal Medicine; Visit Provider Internal Medicine
DX: I10 Essential (primary) hypertension (principal); E78.2 Mixed hyperlipidemia; E03.9 Hypothyroidism, unspecified; M81.0 Age-related osteoporosis without current pathological fracture; I48.0 Paroxysmal atrial fibrillation; I50.9 Heart failure, unspecified
CPT/HCPCS: 36415; 80053; 80061; 81001; 82550; 83880; 84439; 84443; 84481; 85025

== ENCOUNTER 2023-02-06 12:57 | Outpatient (CLI) | payer MEDICARE, SELFPAY ==
--- NOTE | ~2023-02-06 | MM_ITS ---
EXAMINATION: MM screening brian BI w kenzie HISTORY: Screening mammogram, family history of breast cancer in her mother. TECHNIQUE: Craniocaudal and mediolateral oblique 3-D tomosynthesis images were obtained and synthetic 2-D images were generated. CAD analysis was submitted and interpreted. COMPARISON: 10/12/2019, 09/26/2016 BREAST PARENCHYMAL COMPOSITION: There are scattered areas of fibroglandular density. FINDINGS: Scattered benign-appearing calcifications are present. No suspicious mass, calcification, o r architectural distortion are identified in either breast to suggest malignancy. There has been no s uspicious interval change. IMPRESSION: 1. No mammographic evidence of malignancy. 2. Recommend routine screening mammography in one year. BI-RADS Category 2: Benign finding(s). Reviewed, dictated and finalized at location A.
--- NOTE | ~2023-02-06 | DEXA_ITS ---
Bone Density Report Name: CLOVIS HERRERA Age: 72 Sex: Female Ethnicity: White Date of : 1950 Indication: postmenopausal; screening for osteoporosis; height loss; prior fracture; Referring Provider: Leopoldo Velazquez Study: Bone densitometry was performed. Exam Date: February 06, 2023 Accession number: [id number] Bone Density: Region BMD T-score Z-score Classification AP Spine(L1, L2, L3) 0.857 -1.5 0.9 Osteopenia Femoral Neck (Left) 0.584 -2.4 -0.3 Osteopenia Total Hip (Left) 0.742 -1.6 0.1 Osteopenia Femoral Neck (Right) 0.580 -2.4 -0.4 Osteopenia Total Hip (Right) 0.716 -1.9 -0.1 Osteopenia Femoral Neck Mean 0.582 -2.4 -0.3 Osteopenia Total Hip Mean 0.729 -1.7 0.0 Osteopenia World Health Organization criteria for BMD impression classify patients as: Normal (T-score at or above -1.0), Osteopenia (T-score between -1.0 and -2.5), or Osteoporosis (T-score at or below -2.5). 10-year Fracture Risk: FRAX not reported because: Treated for osteoporosis Clinical Information Provided by Patient: Has had a low trauma fracture Is being treated for osteoporosis Has used the following medications: Fosamax (i.e. alendronate), Prolia (i.e. denosumab), Vitamin D Patient maximum height was 62 Menopause Age: 48 No regular weight bearing exercise Drinks caffeinated beverages Onset of menses at age 12 Number of children 6 Impression: The patient has low bone mass, based on the Left Femoral Neck T-score. The patient has risk factors, including: previous fracture. Discussion: It is important to ask patients whether they are taking their medications and to encourage continued and appropriate compliance with their osteoporosis therapies to reduce fracture risk. It is also important to review their risk factors and encourage appropriate calcium and vitamin D intakes, exercise, fall prevention and other lifestyle measures. Follow-Up: Consider a repeat BMD and Vertebral Fracture Assessment (VFA) exam in 2 years or sooner if medically necessary, to reassess this patient's status. Reported by: Dr. Moy Tobin on 02/06/2023 1:50:00 PM. Reviewed, dictated and finalized at location A.
== END 2023-02-06 12:58 | disposition home or self-care (01) ==
LOC: CHSIMG 12:58
PROVIDERS: PCP Internal Medicine; Visit Provider Internal Medicine
DX: Z12.31 Encounter for screening mammogram for malignant neoplasm of breast (principal); Z78.0 Asymptomatic menopausal state; M85.89 Other specified disorders of bone density and structure, multiple sites
CPT/HCPCS: 77063; 77067; 77080

== ENCOUNTER 2023-02-17 08:58 | Outpatient (CLI) | payer MEDICARE, SELFPAY ==
--- NOTE | 2023-03-12 00:45 | WPDSLEEPSTUD ---
Sleep Study Date of Study: 02/17/23 Ordering Provider: Swati Diaz Interpreting Physician: Mary Hyman DO Sleep Study Type: Split Polysomnogram Height: 1.55 m Weight: 65.771 kg Body Mass Index: 27.3 Neck Circumference (inches): 15 [place]: 3 Reason for Sleep Study Daytime hypersomnia ? 08/28/19 ? [facility] Sleep test showed mild sleep apnea with AHI 9.2.? Sleep History Patient is a 72 year old female with history of atrial fibrillation who underwent a sleep study for re-evaluation of sleep apnea. The primary care provider note states she was diagnosed with sleep apnea over 3 years ago and was intolerant to CPAP therapy (tried 3 months), and recommended repeating sleep study to see if she may qualify for [facility]. The record states patient may be willing to re-attempt CPAP depending on the severity of her sleep apnea.? She occasionally awakens from sleep short of breath. She never awakens at night with heartburn, belching or cough.? She frequently snores and occasionally snores loudly enough that others complain. She occasionally has trouble sleeping when she has a cold. She occasionally suddenly wakes up gasping for breath during the night. She occasionally has breathing problems at night. She occasionally sweats excessively at night. She occasionally notices her heart pounding or beating irregularly during the night. She frequently falls asleep during the day. She never falls asleep involuntarily.? She never falls asleep while driving. She never experiences loss of muscle tone with strong emotion. She rarely feels paralyzed on waking or falling asleep. She frequently experiences vivid dreams upon waking or falling asleep. She does not feel afraid of going to sleep. She frequently has nightmares. She frequently recalls her dreams. She occasionally has thoughts racing through her mind. She occasionally feels sad or depressed. She rarely feels anxiety or worry about things. She rarely notices parts of her body jerk. She never kicks during the night. She never feels crawling or aching feelings in her legs. She never feels leg pain at night. She never grinds her teeth during sleep and never has morning jaw pain. She never feels bothered by pain during the day and is never awakened by pain during the night. She rarely wakes with pain in her neck, spine, or joints. ? Normal bedtime is around 9pm on the weekdays and 8pm on the weekends, taking variable amounts of time to fall asleep. Her wake up time is around 6am on the weekdays and same on the weekends. She typically wakes up several, awake a few minutes and she will go to the bathroom and go back to bed.? Habits:? Never tobacco smoker. Drinks about 2 caffeinated beverages per day. No alcohol or recreational substances.? [facility] Past Medical History Medical History (Updated 03/12/23 @ 00:55 by Mary Hyman DO) Depression Dyslipidemia Hypothyroid Osteoporosis Surgical History Surgical History History of ankle surgery Social History Social History Smoking status: Never smoker Second hand tobacco smoke exposure: Yes Alcohol intake: current Substance use: never Substance use type: does not use Gender identity (if verbalized by the patient): Female Agree to blood products: Yes Medications Home Medications Medication Instructions Recorded Confirmed Type alendronate 70 mg tablet 70 mg PO WEEKLY 04/01/19 04/01/19 History atorvastatin 10 mg tablet 10 mg PO DAILY 04/01/19 04/01/19 History citalopram 10 mg tablet 10 mg PO DAILY 04/01/19 04/01/19 History levothyroxine 25 mcg tablet 25 mcg PO DAILY 04/01/19 04/01/19 History ciprofloxacin HCl 500 mg tablet 500 mg PO Q12H 7 days #14 tabs 04/02/19 Rx loperamide 2 mg capsule 2 mg PO Q4H PRN loose stool #14 04/02/19 Rx caps ondansetron HCl 8 mg tablet 8 mg PO Q12H #20 tabs 04/02/19 Rx (Zofran)
[2023-03-12 00:47] VITALS: BMI 27.3
== END 2023-02-18 07:11 | disposition home or self-care (01) ==
LOC: ANHCSM 09:00
PROVIDERS: PCP Internal Medicine
DX: G47.33 Obstructive sleep apnea (adult) (pediatric) (principal)
CPT/HCPCS: 95811

== ENCOUNTER 2023-05-30 11:34 | Outpatient (CLI) | payer MEDICARE, SELFPAY ==
[2023-05-30 12:21] LABS: Basophils Absolute Auto 0.06 K/mm3 (0.00-0.10); Basophils Percent Auto 0.7 % (0.0-1.0); Eosinophils Absolute Auto 0.11 K/mm3 (0.02-0.50); Eosinophils Percent Auto 1.3 % (1.0-6.0); Hematocrit 44.1 % (35.0-42.0); Hemoglobin 14.2 g/dL (11.7-13.8); Immature Granulocyte Absolute 0.05 K/mm3 (0.00-0.00); Immature Granulocyte Percent A 0.6 % (0.0-0.0); Lymphocytes Absolute Auto 2.54 K/mm3 (1.10-4.50); Lymphocytes Percent Auto 29.2 % (18.0-42.0); Mean Corpuscular HGB Conc 32.2 g/dL (32.0-36.0); Mean Corpuscular Hemoglobin 28.2 pg (27.0-31.0); Mean Corpuscular Volume 87.7 fL (78.0-102.0); Mean Platelet Volume 9.9 fl (9.2-11.8); Monocytes Absolute Auto 0.78 K/mm3 (0.10-0.90); Neutrophils Absolute Auto 5.2 K/mm3 (1.7-7.2); Neutrophils Percent Auto 59.2 % (50.0-70.0); Platelet Count Result 267 K/mm3 (150-420); Red Blood Count 5.03 M/mm3 (4.20-5.40); Red Cell Distribution Width 14.6 % (11.6-14.4); White Blood Count 8.7 K/mm3 (4.8-10.8)
[2023-05-30 13:07] LABS: Appearance Urine Clear (Clear); Bilirubin Urine Negative (Negative); Blood Urine Trace-Intact (Negative); Color Urine Light Yellow (Yellow); Glucose Urine UA Negative (Negative); Ketones Urine Negative (Negative); Leukocyte Esterase Ur 1+ LEU/UL (Negative); Nitrate Urine Negative (Negative); Protein Urine Negative (Negative); Specific Grav Ur >= 1.030 (1.010-1.020); Urobilinogen Urine 0.2 mg/dL (0.2-1.0); pH Urine 5.5 (5.0-8.0)
[2023-05-30 13:13] LABS: Add Urine Microscopic? YES; RBC Urine 0-2 /hpf (0-2); Squamous Epithelial Cell Urine Few /hpf (Few)
[2023-05-30 13:14] LABS: Bacteria Urine 1+ /hpf; Mucus Urine Few /lpf
[2023-05-30 13:40] LABS: Alanine Aminotransferase 37 U/L (14-59); Albumin Level 3.9 g/dL (3.4-5.0); Alkaline Phosphatase 138 U/L (46-116); Anion Gap 10 mmol/L (8-16); Aspartate Amino Transferase 22 U/L (15-37); Bilirubin,Total 0.8 mg/dL (0.00-1.00); Blood Urea Nitrogen 22 mg/dL (7-18); Calcium 9.1 mg/dL (8.5-10.1); Carbon Dioxide 28 mmol/L (21-32); Chloride 104 mmol/L (98-108); Estimated Glomerular Filt Rate 60; Free T3 2.45 pg/mL (2.18-3.98); Glucose 98 mg/dL (70-99); HDL Direct 58 mg/dL (40-60); Osmolality Calculated 297 mOsm/kg (285-295); Potassium 4.1 mmol/L (3.5-5.1); Sodium 142 mmol/L (136-145); Thyroid Stimulating Hormone 2.95 uIU/mL (0.36-3.74); Total Protein 7.2 g/dL (6.4-8.2); Triglycerides 209 mg/dL (0-150)
[2023-05-30 14:33] LABS: Creatine Kinase 40 U/L (26-192); Free T4 Free Thyroxine 0.87 ng/dL (0.76-1.46)
[2023-05-30 14:45] LABS: Cholesterol 227 mg/dL (0-200); LDL Cholesterol Calculated 127 mg/dL (<130)
[2023-06-02 21:29] LABS: Vitamin D 25 Hydroxy 87 ng/mL (30-100)
== END 2023-05-30 11:35 | disposition home or self-care (01) ==
LOC: CHSLAB 11:36
PROVIDERS: PCP Internal Medicine; Visit Provider Internal Medicine
DX: N39.0 Urinary tract infection, site not specified (principal); E78.2 Mixed hyperlipidemia; E03.9 Hypothyroidism, unspecified; E55.9 Vitamin D deficiency, unspecified; I10 Essential (primary) hypertension; R82.90 Unspecified abnormal findings in urine
CPT/HCPCS: 36415; 80053; 80061; 81001; 82306; 82550; 84439; 84443; 84481; 85025; 87086; 87088

== ENCOUNTER 2023-11-11 14:29 | Outpatient (RCR) | payer MEDICARE, SELFPAY ==
--- NOTE | 2023-10-15 16:12 | PCPTNOTE ---
Patient called & cancelled scheduled appointment this date. No reason given. -Laney Serna, PT
--- NOTE | 2023-11-11 15:30 | OPREHPOC ---
Outpatient Therapy Plan of Care This is a Multidisciplinary Plan of Care that may contain components documented by all disciplines (PT, OT, and ST.) PT Problem 1 PT Problem #1 Knowledge Deficit PT Goal 1 Goal 1. independent and compliant with HEP Target Visit 2 PT Problem 2 PT Problem #2 Pain PT Goal 1 Goal 1. no pain in the last week Target Visit 3 PT Problem 3 PT Problem #3 Impaired Strength PT Goal 1 Goal 1. 4+/5 or better R shoulder flex 2. 4+/5 or better R shoulder ER PT Problem 4 PT Problem #4 Impaired Functional Mobil PT Goal 1 Goal 1. quick dash to display 0% functional deficits 2. patient to return to house and yard work without pain. Target Visit 3
--- NOTE | 2023-11-11 15:30 | PTOPEVAL1 ---
Assessment and note entered by JT File, PT Evaluation Information Assessment Status Evaluation Subjective Information patient reports she injured the R shoulder while trying to lift a 30lb bag of dirt over a 4-5ft high fence. she reports she felt a pop when this happened about 3 weeks ago. she reports she is feeling better now. she reports she does not have much pain, but will get achy when cold air blows on the shoulder. she reports she also has aching in the arm when leans on the R side in a chair. she reports she does have increased pain as well with pushing open a door, grabbing a blanket onto her body, and pushing a blanket off her body. she reports she has had no imaging of the R Shoulder. she reports she was put on meds to help her sleep initially. she reports she has been using a heating pad and tens unit at home. Reported Pain Level Pain Score 0: Self Report Assessment PT Clinical Summary mrs. daniels is a 73 yo woman who presents to skilled PT services for evaluation and treatment of R shoulder pain. she had an injury pushing a heavy bag of soil over a tall fence. she presents now with decreased pain and symptoms, but some residual aching/pain and weakness. she displays signs and symptoms consistent with a RTC tendonitis/impingement with weakness of the R shoulder and pain in impingement positions/motions . she would benefit from continued skilled PT to address her objective/functional deficits and progress towards a return to her prior level functional activity performance/quality of life. Plan of Care Interventions Electrical Stimulation,Hot Pack/Cold Pack,Manual Therapy,Neuro Re-education,Patient/Caregiver Educati,Therapeutic Activities,Therapeutic Exercise PT Services Indicated Yes Treatment Frequency and 1x weekly for 3 visits Duration These treatments will address the objective and functional deficits as defined above. The patient will be advanced safely and appropriately in order for the patient to progress towards his/her prior level of function. Additional exercises will be introduced and as well as a comprehensive home exercise program upon discharge, if needed, ?to ensure carryover of functional gains achieved in the clinic. This treatment plan has been reviewed and agreement upon by the patient.
--- NOTE | 2023-11-21 14:16 | PCPTNOTE ---
Patient called & cancelled scheduled appointment this date due to patient not feeling well. Will call to schedule on 11/24/23. -Laney Serna PT
--- NOTE | 2023-12-01 13:53 | PCPTNOTE ---
Cancelled session. Pt reports she cannot make it today and will call back later to reschedule.
== END 2023-11-11 15:21 | disposition home or self-care (01) ==
LOC: CHSPT 14:29
PROVIDERS: Visit Provider Nurse Practitioner Family
DX: M25.511 Pain in right shoulder (principal)
CPT/HCPCS: 97014; 97110; 97161; G0283

== ENCOUNTER 2023-12-03 13:17 | Outpatient (CLI) | payer MEDICARE, SELFPAY ==
[2023-12-03 13:30] LABS: Basophils Absolute Auto 0.05 K/mm3 (0.00-0.10); Basophils Percent Auto 0.5 % (0.0-1.0); Eosinophils Absolute Auto 0.09 K/mm3 (0.02-0.50); Eosinophils Percent Auto 0.9 % (1.0-6.0); Hematocrit 41.7 % (35.0-42.0); Hemoglobin 14.2 g/dL (11.7-13.8); Immature Granulocyte Absolute 0.05 K/mm3 (0.00-0.00); Immature Granulocyte Percent A 0.5 % (0.0-0.0); Lymphocytes Absolute Auto 2.51 K/mm3 (1.10-4.50); Mean Corpuscular HGB Conc 34.1 g/dL (32-36); Mean Corpuscular Hemoglobin 29.4 pg (27.0-31.0); Mean Corpuscular Volume 86.3 fL (78.0-102.0); Monocytes Absolute Auto 0.81 K/mm3 (0.10-0.90); Monocytes Percent Auto 8.4 % (2.0-11.0); Neutrophils Absolute Auto 6.13 K/mm3 (1.70-7.20); Neutrophils Percent Auto 63.7 % (50.0-70.0); Platelet Count Result 256 K/mm3 (150-420); Red Blood Count 4.83 M/mm3 (4.20-5.40); Red Cell Distribution Width 14.3 % (11.6-14.4); White Blood Count 9.6 K/mm3 (4.8-10.8)
[2023-12-03 13:31] LABS: Add Urine Microscopic? YES; Appearance Urine Clear (Clear); Bilirubin Urine Negative (Negative); Blood Urine 1+ (Negative); Glucose Urine UA Negative (Negative); Ketones Urine Negative (Negative); Leukocyte Esterase Ur 2+ (Negative); Nitrate Urine Negative (Negative); Protein Urine 1+ (Negative); Specific Grav Ur >= 1.030 (1.010-1.020); Urobilinogen Urine 0.2 mg/dL (0.2-1.0)
[2023-12-03 13:38] LABS: Bacteria Urine 3+ /hpf; Color Urine Yellow (Yellow); Mucus Urine Moderate /lpf; Squamous Epithelial Cell Urine Moderate /hpf (Few); WBC Urine 31-50 /hpf (0-3)
[2023-12-03 14:27] LABS: Alanine Aminotransferase 33 U/L (14-59); Albumin Level 3.9 g/dL (3.4-5.0); Alkaline Phosphatase 129 U/L (46-116); Anion Gap 14 mmol/L (4-12); Aspartate Amino Transferase 29 U/L (15-37); Bilirubin,Total 0.7 mg/dL (0.00-1.00); Blood Urea Nitrogen 15 mg/dL (7-18); Calcium 8.7 mg/dL (8.5-10.1); Carbon Dioxide 24 mmol/L (21-32); Chloride 102 mmol/L (98-108); Cholesterol 197 mg/dL (0-200); Creatine Kinase 49 U/L (26-192); Estimated Glomerular Filt Rate > 60; Free T3 2.41 pg/mL (2.18-3.98); Free T4 Free Thyroxine 0.91 ng/dL (0.76-1.46); Glucose 111 mg/dL (70-99); HDL Direct 47 mg/dL (40-60); LDL Cholesterol Calculated 102 mg/dL (<130); NT Pro B Type Natriuretic Pept 136 pg/mL (0-450); Osmolality Calculated 291 mOsm/kg (285-295); Potassium 4.1 mmol/L (3.5-5.1); Sodium 140 mmol/L (136-145); Thyroid Stimulating Hormone 2.48 uIU/mL (0.36-3.74); Total Protein 6.9 g/dL (6.4-8.2); Triglycerides 241 mg/dL (0-150)
== END 2023-12-03 13:18 | disposition home or self-care (01) ==
LOC: CHSLAB 13:20
PROVIDERS: PCP Internal Medicine; Visit Provider Internal Medicine
DX: R53.82 Chronic fatigue, unspecified (principal); I10 Essential (primary) hypertension; J32.4 Chronic pansinusitis; I48.0 Paroxysmal atrial fibrillation; E03.9 Hypothyroidism, unspecified; I50.9 Heart failure, unspecified
CPT/HCPCS: 36415; 80053; 80061; 81001; 82550; 83880; 84439; 84443; 84481; 85025

== ENCOUNTER 2024-01-02 11:52 | Outpatient (CLI) | payer MEDICARE, SELFPAY ==
--- NOTE | ~2024-01-02 | XR_ITS ---
XR shoulder RT min 2V 01/02/2024 12:12 Indication: Right shoulder pain Procedure: 3 views right shoulder Comparison: 07/23/2006 Findings: There is moderate polyarticular osteoarthritis the right shoulder. No fracture, subluxation or dislocation. No significant soft tissue abnormality. No foreign bodies. Impression: 1: Moderate polyarticular osteoarthritis of the right shoulder. Reviewed, dictated and finalized at location B. Impression: 1: Moderate polyarticular osteoarthritis of the right shoulder.
== END 2024-01-02 11:53 | disposition home or self-care (01) ==
LOC: CHSIMG 11:54
PROVIDERS: PCP Internal Medicine; Visit Provider Internal Medicine
DX: M25.511 Pain in right shoulder (principal); M19.011 Primary osteoarthritis, right shoulder
CPT/HCPCS: 73030

== ENCOUNTER 2024-02-21 10:38 | Outpatient (CLI) | payer MEDICARE, SELFPAY ==
--- NOTE | ~2024-02-21 | MR_ITS ---
EXAMINATION: MR shoulder RT wo con DATE: 02/21/2024 11:42 INDICATION: Right shoulder pain. Injury. TECHNIQUE: Magnetic resonance imaging (MRI) of the right shoulder was performed without intravenous c ontrast. Sequences included axial PD-weighted FS FSE, coronal oblique PD-weighted FS FSE and T2-weigh eric FS FSE, and sagittal oblique T2-weighted FS FSE and T1-weighted FSE. COMPARISON: Right shoulder radiographs 01/02/2024 FINDINGS: Coracoacromial arch: The acromion undersurface is convex in morphology (type IV). There is severe acromioclavicular joint osteoarthritis. There is moderate subacromial/subdeltoid bursitis. Rotator cuff: There is a full-thickness tear of supraspinatus and infraspinatus tendons measuring 2.0 cm anterior t o posterior by 2.9 cm proximal to distal. Teres minor tendon is normal. There is severe subscapularis tendinopathy with articular-sided partial tear. There is mild fatty atrophy of the subscapularis mus sj belly. Biceps tendon and glenoid labrum: Biceps tendon is partially medially displaced from the distal groove into the subscapularis tendon te ar. There is mild intra-articular biceps tendinopathy. There is degenerative fraying of the glenoid l abrum. Fluid: There is a small glenohumeral joint effusion. Bones/cartilage: There is deep partial-thickness cartilage loss of posterior inferior glenoid. There is shallow partia l-thickness cartilage loss of humeral head. Osteophytes are noted. IMPRESSION: 1. Full-thickness rotator cuff tear. 2. Moderate glenohumeral joint chondrosis. 3. Severe acromioclavicular joint osteoarthritis. 4. Partial medial displacement of biceps tendon from the bicipital groove into the subscapularis tend on tear. Mild biceps tendinopathy. 5. Small glenohumeral joint effusion and moderate subacromial/subdeltoid bursitis. Reviewed, dictated and finalized at location A. ITALITY DIRECTOR IMPRESSION: 1. Full-thickness rotator cuff tear. 2. Moderate glenohumeral joint chondrosis. 3. Severe acromioclavicular joint osteoarthritis. 4. Partial medial displacement of biceps tendon from the bicipital groove into the subscapularis tendon tear. Mild biceps tendinopathy. 5. Small glenohumeral joint effusion and moderate subacromial/subdeltoid bursit is.
== END 2024-02-21 10:39 | disposition home or self-care (01) ==
LOC: CHSIMG 10:38
PROVIDERS: PCP Internal Medicine; Visit Provider Internal Medicine
DX: M25.511 Pain in right shoulder (principal); M94.211 Chondromalacia, right shoulder; M19.011 Primary osteoarthritis, right shoulder; M25.411 Effusion, right shoulder; M67.813 Other specified disorders of tendon, right shoulder; M75.51 Bursitis of right shoulder
CPT/HCPCS: 73221

== ENCOUNTER 2024-07-13 12:57 | Outpatient (CLI) | payer MEDICARE, SELFPAY ==
--- NOTE | ~2024-07-13 | CT_ITS ---
CT sinus wo con Ordering provider: Riki Sanches M.D. History: . Sensorineural hearing loss, bilateral, chronic sinusitis . Comparison: None. Technique: Thin slice Scans CT of the paranasal sinuses was performed with coronal and sagittal refor matted images. No IV contrast. . Automated exposure control and iterative reconstruction technique w ere employed. The dose-length product was 343.37 mGy-cm. Findings: NASAL SEPTUM: Mild left nasal septal deviation. OSTEOMEATAL UNITS: Bilaterally patent. NASAL TURBINATES AND NASOPHARYNX: Normal. PARANASAL SINUSES: Right maxillary sinus disease. VISUALIZED MASTOIDS: Normal as visualized. BONES: Normal. SUPERFICIAL SOFT TISSUES/VISUALIZED BRAIN PARENCHYMA: Normal. IMPRESSION: Mild left nasal septal deviation. Right maxillary sinus disease. Reviewed, dictated and finalized at location A.
--- OUTSIDE RECORDS SUMMARY | 2024-07-13 14:18 | XMS_ITS | Referral Summary ---
Author Organization [facility] [address] Address [address] [place] [address] Care Team Providers Care Intelligence Specialist Name Role Phone Leopoldo Velazquez MD Primary Care Provider [phone] Encounters Date Type Department Care Team Description 05/27/2024 Orders Only [facility] Orthopedic and Sports Medicine [address] [place] [phone] Wei Cantu MD Rotator cuff arthropathy of right shoulder (Primary Dx) 05/26/2024 3:00 PM BOX TOE CUTTER Office Visit [facility] Orthopedic and Sports Medicine [address] [place] [phone] Wei Cantu MD Rotator cuff arthropathy of right shoulder (Primary Dx) from Last 3 Months Allergies No known active allergies Medications atorvastatin (LIPITOR) 10 mg tablet 1 Active levothyroxine (SYNTHROID) 25 mcg tablet 2 Active escitalopram (LEXAPRO) 20 mg tablet 2 Active amLODIPine (NORVASC) 10 mg tablet 2 Active metoprolol tartrate (LOPRESSOR) 25 mg immediate release tablet 2 Active alendronate (FOSAMAX) 70 mg tablet Take 1 tablet (70 mg total) by mouth every 7 days Take in the morning with a full glass of water, on an empty stomach, and do not take anything else by mouth or lie down for the next 30 min. Active BUDESONIDE INHAL Inhale Act antione denosumab (PROLIA SUBQ) Inject under the skin Active apixaban (ELIQUIS) 5 mg tablet 1 tablet (5 mg total) Active losartan (COZAAR) 25 mg tabletIndications :Essential hypertension Take one pill as needed if systolic blood pressure above 150 30 tablet 3 2 Active Active Problems Problem Noted Date Diagnosed Date Chronic maxillary sinusitis 04/02/2022 PAF (paroxysmal atrial fibrillation) 05/07/2021 Essential hypertension 05/07/2021 Chronic anticoagulation 05/07/2021 Social History Tobacco Use Types Packs/Day Years Used Date Smoking Tobacco: Never Smokeless Tobacco: Never Comments Unknown Sex and Gender Information Value Date Recorded Sex Assigned at Not on file Legal Sex Female 10:37 AM BOX TOE CUTTER Gender Identity Not on file Sexual Orientation Not on file Last Filed Vital Signs Vital Sign Reading Time Taken Comments Blood Pressure 133/84 05/26/2024 4:10 PM BOX TOE CUTTER Pulse 69 05/26/2024 4:10 PM BOX TOE CUTTER Temperature - - Respiratory Rate 18 04/02/2022 3:19 PM BOX TOE CUTTER Oxygen Saturation 98% 05/07/2021 9:16 AM BOX TOE CUTTER Inhaled Oxygen Concentration - - Weight 71.7 kg (158 lb) 05/26/2024 4:10 PM BOX TOE CUTTER Height 157.5 cm (5' 2 ) 05/26/2024 4:10 PM BOX TOE CUTTER Body Mass Index 28.9 05/26/2024 4:10 PM BOX TOE CUTTER Plan of Treatment Not on file Insurance MEDICARE UHC MEDICARE ADVANTAGE [facility] MEDICARE Care Teams Intelligence Specialist Relationship Specialty Start Date End Date Leopoldo Velazquez MD [address] [place] [address] PCP - General Internal Medicine 05/03/21
--- OUTSIDE RECORDS SUMMARY | 2024-07-13 14:18 | XMS_ITS | Clinical Summary ---
Author Organization [facility] Address [facility] [place] [address] Care Team Providers Care Maintenance Service Technician Name Role Phone Unavailable Primary Care Provider Unavailabl e Social History Tobacco Use Types Packs/Day Years Used Date Smoking Tobacco: Never Assessed Comments Unknown Sex and Gender Information Value Date Recorded Sex Assigned at Not on file Legal Sex Female 5:57 PM CHIEF OF STAFF DOCTOR Gender Identity Not on file Sexual Orientation Not on file Plan of Treatment Health Maintenance Due Date Last Done Comments Colorectal Cancer Screening Colonoscopy (10 Years) 1948 Hepatitis C 1966 DTaP, Tdap and Td Vaccines ( 1 - Tdap) 07/13/1967 Zoster Vaccines (1 of 2) 1998 Annual Medicare Wellness Visit 2013 Dexa Scan (General) 2013 Pneumococcal Vaccine: 65+ Ye ars (1 of 1 - PCV) 2013 RSV Immunization or 60+ Years (1 - 1-dose 75+ series) 07/13/2023 COVID-19 Vaccine (1 - 2023-2 5 season) 2023 Meningococcal B Vaccine Aged Out No l onger eligible based on patient's age to complete this topic Meningococcal Vaccine Aged Out No mike марина eligible based on patient's age to complete this topic RSV Immunizations Under 20 Months Aged Out No longer eligible based on patient's age to complete this topic Insurance [employer]
--- OUTSIDE RECORDS SUMMARY | 2024-07-13 14:18 | XMS_ITS | Encounter Summary ---
Author Organization [facility] Address [facility] [place] [address] Care Team Providers Care Photography Spotter Name Role Phone Unavailable Primary Care Provider Unavailabl e Encounter Details Date Type Department Care Team (Late st Contact Info) Description 09/12/2018 Abstract SFL CONVERSION [address] [place] [address] , Generic Conversion, Social History Tobacco Use Types Packs/Day Years Used Date Smoking Tobacco: Never Assessed Comments Unknown Sex and Gender Information Value Date Recorded Sex Assigned at Not on file Legal Sex Female 5:57 PM CLIENT RELATIONS SPECIALIST Gender Identity Not on file Sexual Orientation Not on file documented as of this encounter Plan of Treatment Not on file documented as of this encounter Visit Diagnoses Not on filedocumented in this encounter
--- OUTSIDE RECORDS SUMMARY | 2024-07-13 14:18 | XMS_ITS | Clinical Summary ---
Author Organization [facility] [address] Address [address] [place] [address] Care Team Providers Care Shape Hand Name Role Phone Leopoldo Velazquez MD Primary Care Provider + [phone] Allergies No known active allergies Medications atorvastatin [...] 05/07/2021 Essential hypertension 05/07/2021 Chronic anticoagulation 05/07/2021 Encounters Date Type Department Care Team Description 05/27/2024 Orders Only [facility] Orthopedic and Sports Medicine [address] [place] [phone] Wei Cantu MD Rotator cuff arthropathy of right shoulder (Primary Dx) 05/26/2024 3:00 PM PRODUCTION HONING MACHINE OPERATOR Office Visit [facility] Orthopedic and Sports Medicine [address] [place] [phone] Wei Cantu MD Rotator cuff arthropathy of right shoulder (Primary Dx) from Last 3 Months Surgical History Surgery Date Site/Laterality Comments SHOULDER ARTHROSCOPY 04/07/1995 - 04/06/1996 Right ESOPHAGOGASTRODUODENOSCOPY ANKLE SURGERY Left Medical History Medical History Date Comments PSVT (paroxysmal supraventricular tachycardia) A-fib (HCC) Thyroid disease Sleep apnea Hypertension Hyperlipidemia Trigger finger Allergic rhinitis Family History Medical History Relation Name Comments Cancer Father Kidney disease Mother Relation Name Status Comments Father (Age 90) Mother (Age 89) Social History Tobacco Use Types Packs/Day Years Used Date Smoking Tobacco: Never Smokeless Tobacco: Never Comments Unknown Sex and Gender Information Value Date Recorded Sex Assigned at Not on file Legal Sex Female 10:37 AM PRODUCTION HONING MACHINE OPERATOR Gender Identity Not on file Sexual Orientation Not on file Obstetrics History Last Filed Vital Signs Vital Sign Reading Time Taken Comments Blood Pressure 133/84 05/26/2024 4:10 PM PRODUCTION HONING MACHINE OPERATOR Pulse 69 05/26/2024 4:10 PM PRODUCTION HONING MACHINE OPERATOR Temperature - - Respiratory Rate 18 04/02/2022 3:19 PM PRODUCTION HONING MACHINE OPERATOR Oxygen Saturation 98% 05/07/2021 9:16 AM PRODUCTION HONING MACHINE OPERATOR Inhaled Oxygen Concentration - - Weight 71.7 kg (158 lb) 05/26/2024 4:10 PM PRODUCTION HONING MACHINE OPERATOR Height 157.5 cm (5' 2 ) 05/26/2024 4:10 PM PRODUCTION HONING MACHINE OPERATOR Body Mass Index 28.9 05/26/2024 4:10 PM PRODUCTION HONING MACHINE OPERATOR Plan of Treatment Health Maintenance Due Date Last Done Comments Colon Cancer Screening-Colonoscopy 1948 Depression Screening 1948 Fall Risk Assessment 1950 Hepatitis C Screening 1948 Osteoporosis Screening-Bone Density Scan 1948 Hepatitis B Screening 1966 Zoster Vaccine (1 of 2) 1998 Well Visit 65+ 2013 Pneumococcal vaccine 65+ (2 of 2 - PPSV23) 04/15/2019 04/15/2018 Covid-19 Vaccine (3 - 2023-2 5 season) 2023 10/17/2020, 09/25/2020 Influenza Vaccine (#1) 2023 9, 02/03/2014, 01/27/2013, Additional history exists DTaP/Tdap/Td Vaccine (6 - Td or Tdap) 02/04/2024 02/03/2014, 09/04/2001, 05/24/1997, Additional history exists Insurance [facility] MEDICARE [facility] MEDICARE ADVANTAGE [facility] Address: [address] [address] [place] [address] [facility] MED[facility] Care Teams Shape Hand Relationship Specialty Start Date End Date Leopoldo Velazquez MD [address] [place] [address] PCP - General Internal Medicine 05/03/21
== END 2024-07-13 12:58 | disposition home or self-care (01) ==
PROVIDERS: PCP Internal Medicine; Visit Provider Otolaryngology
DX: H93.19 Tinnitus, unspecified ear (principal); H90.3 Sensorineural hearing loss, bilateral; H69.90 Unspecified Eustachian tube disorder, unspecified ear; J01.01 Acute recurrent maxillary sinusitis; J34.2 Deviated nasal septum; J32.0 Chronic maxillary sinusitis
CPT/HCPCS: 70486

== ENCOUNTER 2024-07-23 14:24 | Outpatient (CLI) | payer MEDICARE, SELFPAY ==
--- OUTSIDE RECORDS SUMMARY | 2024-07-23 14:28 | XMS_ITS | Encounter Summary ---
Author Organization [facility] Address [facility] [place] [address] Care Team Providers Care Energy Crop Farmer Name Role Phone Unavailable Primary Care Provider Unavailabl e Encounter Details Date Type Department Care Team (Late st Contact Info) Description 09/12/2018 Abstract SFL CONVERSION [address] [place] [address] , Generic Conversion, Social History Tobacco Use Types Packs/Day Years Used Date Smoking Tobacco: Never Assessed Comments Unknown Sex and Gender Information Value Date Recorded Sex Assigned at Not on file Legal Sex Female 5:57 PM SERVICE PARTS DRIVER Gender Identity Not on file Sexual Orientation Not on file documented as of this encounter Plan of Treatment Not on file documented as of this encounter Visit Diagnoses Not on filedocumented in this encounter
--- OUTSIDE RECORDS SUMMARY | 2024-07-23 14:28 | XMS_ITS | Referral Summary ---
Author Organization [facility] [address] Address [address] [place] [address] Care Team Providers Care Sales Professional Bilingual Name Role Phone Leopoldo Velazquez MD Primary Care Provider + [phone] Encounters Date Type Department Care Team Description 05/27/2024 Orders Only [facility] Orthopedic and Sports Medicine [address] [place] [phone] Wei Cantu MD Rotator cuff arthropathy of right shoulder (Primary Dx) 05/26/2024 3:00 PM VACUUM FURNACE OPERATOR Office Visit [facility] Orthopedic and Sports Medicine [address] [place] [phone] Wei Cantu MD Rotator cuff arthropathy [...] on file Legal Sex Female 10:37 AM VACUUM FURNACE OPERATOR Gender Identity Not on file Sexual Orientation Not on file Last Filed Vital Signs Vital Sign Reading Time Taken Comments Blood Pressure 133/84 05/26/2024 4:10 PM VACUUM FURNACE OPERATOR Pulse 69 05/26/2024 4:10 PM VACUUM FURNACE OPERATOR Temperature - - Respiratory Rate 18 04/02/2022 3:19 PM VACUUM FURNACE OPERATOR Oxygen Saturation 98% 05/07/2021 9:16 AM VACUUM FURNACE OPERATOR Inhaled Oxygen Concentration - - Weight 71.7 kg (158 lb) 05/26/2024 4:10 PM VACUUM FURNACE OPERATOR Height 157.5 cm (5' 2 ) 05/26/2024 4:10 PM VACUUM FURNACE OPERATOR Body Mass Index 28.9 05/26/2024 4:10 PM VACUUM FURNACE OPERATOR Plan of Treatment Not on file Insurance [facility] Address: [facility] [id number] [place] [phone] UHC MEDICARE ADVANTAGE [facility] MEDIC[facility] Address: [address] [address] [place] [address] [facility] MED[facility] Care Teams Sales Professional Bilingual Relationship Specialty Start Date End Date Leopoldo Velazquez MD [address] [place] [address] PCP - General Internal Medicine 05/03/21
--- OUTSIDE RECORDS SUMMARY | 2024-07-23 14:28 | XMS_ITS | Clinical Summary ---
Author Organization [facility] Address [facility] [place] [address] Care Team Providers Care Digital Pre Press Operator Name Role Phone Unavailable Primary Care Provider Unavailabl e Social History Tobacco Use Types Packs/Day Years Used Date Smoking Tobacco: Never Assessed Comments Unknown Sex and Gender Information Value Date Recorded Sex Assigned at Not on file Legal Sex Female 5:57 PM PRODUCTION CHECKER Gender Identity Not on file Sexual Orientation Not on file Plan of Treatment Health Maintenance Due Date Last Done Comments Hepatitis C 1966 DTaP, Tdap and Td Vaccines ( 1 - Tdap) 07/13/1967 Zoster Vaccines (1 of 2) 1998 Annual Medicare Wellness Visit 2013 Dexa Scan (General) 2013 Pneumococcal Vaccine: 50+ Ye ars (1 of 1 - PCV) 2013 RSV Immunization or 60+ Years (1 - 1-dose 75+ series) 07/13/2023 COVID-19 Vaccine ( - 2023-2 5 season) 2023 Meningococcal B [...]
--- OUTSIDE RECORDS SUMMARY | 2024-07-23 14:28 | XMS_ITS | Clinical Summary ---
Author Organization [facility] [address] Address [address] [place] [address] Care Team Providers Care Milk Inspector Name Role Phone Leopoldo Velazquez MD Primary Care Provider + [phone] Allergies No known active allergies Medications atorvastatin [...] Department Care Team Description 05/27/[address] [facility] Orthopedic and Sports Medicine [address] [place] [phone] Wei Cantu MD Rotator cuff arthropathy of right shoulder (Primary Dx) 05/26/2024 3:00 PM TURKEY EGG GATHERER Office Visit [facility] Orthopedic and Sports Medicine [address] [place] [phone] Wei Cantu MD Rotator cuff arthropathy of [...] on file Legal Sex Female 10:37 AM TURKEY EGG GATHERER Gender Identity Not on file Sexual Orientation Not on file Obstetrics History Last Filed Vital Signs Vital Sign Reading Time Taken Comments Blood Pressure 133/84 05/26/2024 4:10 PM TURKEY EGG GATHERER Pulse 69 05/26/2024 4:10 PM TURKEY EGG GATHERER Temperature - - Respiratory Rate 18 04/02/2022 3:19 PM TURKEY EGG GATHERER Oxygen Saturation 98% 05/07/2021 9:16 AM TURKEY EGG GATHERER Inhaled Oxygen Concentration - - Weight 71.7 kg (158 lb) 05/26/2024 4:10 PM TURKEY EGG GATHERER Height 157.5 cm (5' 2 ) 05/26/2024 4:10 PM TURKEY EGG GATHERER Body Mass Index 28.9 05/26/2024 4:10 PM TURKEY EGG GATHERER Plan of Treatment Health Maintenance Due Date [...] 02/03/2014, 09/04/2001, 05/24/1997, Additional history exists Insurance [facility] MEDICARE ADVANTAGE [facility] Care Teams Milk Inspector Relationship Specialty Start Date End Date Leopoldo Velazquez MD [address] [place] [address] PCP - General Internal Medicine 05/03/21
[2024-07-23 14:48] LABS: Add Urine Microscopic? YES; Appearance Urine Sl Cloudy (Clear); Bilirubin Urine 1+ (Negative); Blood Urine Negative (Negative); Color Urine Yellow (Yellow); Glucose Urine UA Negative (Negative); Hematocrit 42.3 % (35.0-42.0); Hemoglobin 13.7 g/dL (11.7-13.8); Ketones Urine 1+ (Negative); Leukocyte Esterase Ur Negative LEU/UL (Negative); Mean Corpuscular HGB Conc 32.4 g/dL (32-36); Mean Corpuscular Hemoglobin 28.4 pg (27.0-31.0); Mean Corpuscular Volume 87.6 fL (78.0-102.0); Mean Platelet Volume 10.4 fl (9.2-11.8); Nitrate Urine Negative (Negative); Platelet Count Result 267 K/mm3 (150-420); Protein Urine Negative (Negative); Red Blood Count 4.83 M/mm3 (4.20-5.40); Specific Grav Ur 1.025 (1.010-1.020); Urobilinogen Urine 0.2 mg/dL (0.2-1.0); White Blood Count 7.7 K/mm3 (4.8-10.8); pH Urine 5.5 (5.0-8.0)
[2024-07-23 14:55] LABS: Bacteria Urine Trace /hpf; RBC Urine None seen /hpf (0-2); Squamous Epithelial Cell Urine Many /hpf (Few); WBC Urine 0-3 /hpf (0-3)
[2024-07-23 14:59] LABS: Hemoglobin A1C 5.8 % (<5.7)
[2024-07-23 15:16] LABS: Alanine Aminotransferase 28 U/L (14-59); Alkaline Phosphatase 91 U/L (46-116); Anion Gap 10 mmol/L (4-12); Aspartate Amino Transferase 22 U/L (15-37); Bilirubin,Total 0.7 mg/dL (0.00-1.00); Blood Urea Nitrogen 20 mg/dL (7-18); Calcium 9.1 mg/dL (8.5-10.1); Carbon Dioxide 27 mmol/L (21-32); Chloride 106 mmol/L (98-108); Cholesterol 180 mg/dL (0-200); Creatine Kinase 86 U/L (26-192); Estimated Glomerular Filt Rate > 60; Free T4 Free Thyroxine 1.22 ng/dL (0.76-1.46); Glucose 99 mg/dL (70-99); HDL Direct 61 mg/dL (40-60); LDL Cholesterol Calculated 100 mg/dL (<130); Osmolality Calculated 298 mOsm/kg (285-295); Sodium 143 mmol/L (136-145); Thyroid Stimulating Hormone 2.03 uIU/mL (0.36-3.74); Triglycerides 95 mg/dL (0-150)
[2024-07-23 15:18] LABS: Free T3 2.37 pg/mL (2.18-3.98)
== END 2024-07-23 14:25 | disposition home or self-care (01) ==
PROVIDERS: PCP Internal Medicine; Visit Provider Internal Medicine
DX: E03.9 Hypothyroidism, unspecified (principal); I48.0 Paroxysmal atrial fibrillation; E78.2 Mixed hyperlipidemia; I10 Essential (primary) hypertension; J32.4 Chronic pansinusitis; R53.82 Chronic fatigue, unspecified; R73.01 Impaired fasting glucose
CPT/HCPCS: 36415; 80053; 80061; 81001; 82550; 83036; 84439; 84443; 84481; 85027

== ENCOUNTER 2024-08-19 14:31 | Outpatient (CLI) | payer MEDICARE, SELFPAY ==
--- NOTE | ~2024-08-19 | DEXA_ITS ---
Bone Density Report Name: CLOVIS HERRERA Age: 74 Sex: Female Ethnicity: White Date of : 1950 Indication: osteopenia; monitoring treatment; height loss; Referring Provider: Leopoldo Velazquez Study: Bone densitometry was performed. Exam Date: August 19, 2024 Accession number: [id number] Bone Density: Region BMD T-score Z-score Classification AP Spine(L2, L3, L4) 0.977 -0.9 1.6 Normal Femoral Neck (Left) 0.581 -2.4 -0.3 Osteopenia Total Hip (Left) 0.775 -1.4 0.5 Osteopenia Femoral Neck (Right) 0.592 -2.3 -0.2 Osteopenia Total Hip (Right) 0.808 -1.1 0.7 Osteopenia Femoral Neck Mean 0.587 -2.4 -0.2 Osteopenia Total Hip Mean 0.792 -1.2 0.6 Osteopenia World Health Organization criteria for BMD impression classify patients as: Normal (T-score at or above -1.0), Osteopenia (T-score between -1.0 and -2.5), or Osteoporosis (T-score at or below -2.5). 10-year Fracture Risk: FRAX not reported because: Treated for osteoporosis Previous Exams: Region Exam Age BMD T-score BMD Change BMD Change Date g/cm2 vs Baseline vs Previous AP Spine (L2-L4) 08/19/2024 74 0.977 -0.9 -0.015 (-1.5%) 0.022 (2.3%)# 10/12/2019 69 0.955 -1.1 -0.037 (-3.7%) 0.035 (3.8%)* 09/20/2016 66 0.920 -1.4 -0.072 (-7.2%) 0.059 (6.9%)* 01/01/2010 59 0.861 -2.0 -0.131 (-13.2% -0.131 (-13.2% 07/28/2006 56 0.992 -0.8 Total Hip(Left) 08/19/2024 74 0.775 -1.4 0.041 (5.6%)# 0.033 (4.5%)* 02/06/2023 72 0.742 -1.6 0.008 (1.1%)# -0.025 (-3.2%) 11/20/2021 71 0.767 -1.4 0.033 (4.5%)# 0.051 (7.1%)# 10/12/2019 69 0.716 -1.9 -0.018 (-2.4%) 0.023 (3.3%) 09/20/2016 66 0.693 -2.0 -0.041 (-5.6%) 0.000 (0.0%) 01/01/2010 59 0.693 -2.0 -0.041 (-5.5%) -0.041 (-5.5%) 07/28/2006 56 0.734 -1.7 Total Hip(Right) 08/19/2024 74 0.808 -1.1 0.041 (5.3%)# 0.092 (12.8%)* 02/06/2023 72 0.716 -1.9 -0.051 (-6.6%) -0.028 (-3.7%) 11/20/2021 71 0.744 -1.6 -0.023 (-3.0%) 0.035 (4.9%)# 10/12/2019 69 0.709 -1.9 -0.058 (-7.6%) -0.027 (-3.7%) 01/01/2010 59 0.736 -1.7 -0.031 (-4.0%) -0.031 (-4.0%) 07/28/2006 56 0.767 -1.4 *Denotes significance at 95% confidence level, LSC for AP Spine = 0.022 g/cm2, LSC for Total Hip = 0.027 g/cm2 # Denotes dissimilar scan types or analysis methods Clinical Information Provided by Patient: Is being treated for osteoporosis Has used the following medications: Prolia (i.e. denosumab), Vitamin D, Calcium Patient maximum height was 62 Menopause Age: 48 No regular weight bearing exercise Onset of menses at age 10 Number of children 6 Impression: The patient has low bone mass, based on the Left Femoral Neck T-score. No significant bone loss was observed. Discussion: PATIENT UNDER TREATMENT WITH NO SIGNIFICANT BMD LOSS SINCE LAST EXAM. In an untreated patient, BMD typically declines with age. A lack of decline or gain is usually a sign that treatment is efficacious and fracture risk is reduced. It is important to ask patients whether they are taking their medications and to encourage continued and appropriate compliance with their osteoporosis therapies to reduce fracture risk. It is also important to review their risk factors and encourage appropriate calcium and vitamin D intakes, exercise, fall prevention and other lifestyle measures. Follow-Up: Consider a repeat BMD and Vertebral Fracture Assessment (VFA) exam in 2 years or sooner if medically necessary, to reassess this patient's status. Reported by: MERCEDES on 08/19/2024 2:53:00 PM. Reviewed, dictated and finalized at location A.
--- OUTSIDE RECORDS SUMMARY | 2024-08-19 14:34 | XMS_ITS | Referral Summary ---
Author Organization [facility] [address] Address [address] [place] [address] Care Team Providers Care Provider Service Representative Name Role Phone Leopoldo Velazquez MD Primary Care Provider + [phone] Encounters Date Type Department Care Team Description 05/27/[address] [facility] Medical Group Orthopedic and Sports Medicine [address] [place] [phone] Wei Cantu MD Rotator cuff arthropathy of right shoulder (Primary Dx) 05/26/2024 3:00 PM SOCIAL MEDIA ASSISTANT Office Visit [facility] Medical Group Orthopedic and Sports Medicine [address] [place] [phone] Wei Cantu MD Rotator cuff arthropathy [...] on file Legal Sex Female 10:37 AM SOCIAL MEDIA ASSISTANT Gender Identity Not on file Sexual Orientation Not on file Last Filed Vital Signs Vital Sign Reading Time Taken Comments Blood Pressure 133/84 05/26/2024 4:10 PM SOCIAL MEDIA ASSISTANT Pulse 69 05/26/2024 4:10 PM SOCIAL MEDIA ASSISTANT Temperature - - Respiratory Rate 18 04/02/2022 3:19 PM SOCIAL MEDIA ASSISTANT Oxygen Saturation 98% 05/07/2021 9:16 AM SOCIAL MEDIA ASSISTANT Inhaled Oxygen Concentration - - Weight 71.7 kg (158 lb) 05/26/2024 4:10 PM SOCIAL MEDIA ASSISTANT Height 157.5 cm (5' 2 ) 05/26/2024 4:10 PM SOCIAL MEDIA ASSISTANT Body Mass Index 28.9 05/26/2024 4:10 PM SOCIAL MEDIA ASSISTANT Plan of Treatment Not on file Insurance MEDICARE UHC MEDICARE ADVANTAGE [facility] MEDICARE Care Teams Provider Service Representative Relationship Specialty Start Date End Date Leopoldo Velazquez MD [address] [place] [address] PCP - General Internal Medicine 05/03/21
--- OUTSIDE RECORDS SUMMARY | 2024-08-19 14:34 | XMS_ITS | Clinical Summary ---
Author Organization [facility] Address [facility] [place] [address] Care Team Providers Care Mechanic Welder Truck Driver Name Role Phone Unavailable Primary Care Provider Unavailabl e Social History Tobacco Use Types Packs/Day Years Used Date Smoking Tobacco: Never Assessed Comments Unknown Sex and Gender Information Value Date Recorded Sex Assigned at Not on file Legal Sex Female 5:57 PM DRIVER'S LICENSE REVIEWING OFFICER Gender Identity Not on file Sexual Orientation Not on file Plan of Treatment Health Maintenance Due Date Last Done Comments Hepatitis C 1966 DTaP, Tdap and Td Vaccines ( 1 - Tdap) 07/13/1967 Pneumococcal Vaccine: 50+ Ye ars (1 of 1 - PCV) 1998 Zoster Vaccines (1 of 2) 1998 Annual Medicare Wellness Visit 2013 Dexa Scan (General) 2013 RSV Immunization or 60+ Years (1 [...]
--- OUTSIDE RECORDS SUMMARY | 2024-08-19 14:34 | XMS_ITS | Encounter Summary ---
Author Organization [facility] Address [facility] [place] [address] Care Team Providers Care Maintenance Painter Name Role Phone Unavailable Primary Care Provider Unavailabl e Encounter Details Date Type Department Care Team (Late st Contact Info) Description 09/12/2018 Abstract SFL CONVERSION [address] [place] [address] , Generic Conversion, Social History Tobacco Use Types Packs/Day Years Used Date Smoking Tobacco: Never Assessed Comments Unknown Sex and Gender Information Value Date Recorded Sex Assigned at Not on file Legal Sex Female 5:57 PM BALLING HEAD TENDER Gender Identity Not on file Sexual Orientation Not on file documented as of this encounter Plan of Treatment Not on file documented as of this encounter Visit Diagnoses Not on filedocumented in this encounter
--- OUTSIDE RECORDS SUMMARY | 2024-08-19 14:34 | XMS_ITS | Clinical Summary ---
Author Organization [facility] [address] Address [address] [place] [address] Care Team Providers Care Zigzag Appliquer Name Role Phone Leopoldo Velazquez MD Primary Care Provider + [phone] Allergies No known active allergies Medications atorvastatin [...] Department Care Team Description 05/27/2024 Orders Only [facility] Medical [facility] Orthopedic and Sports Medicine [address] [place] [phone] Wei Cantu MD Rotator cuff arthropathy of right shoulder (Primary Dx) 05/26/2024 3:00 PM PREFLIGHT MECHANIC Office Visit [facility] Orthopedic and Sports Medicine [address] [place] [phone] Wei Cantu MD Rotator cuff arthropathy of [...] on file Legal Sex Female 10:37 AM PREFLIGHT MECHANIC Gender Identity Not on file Sexual Orientation Not on file Obstetrics History Last Filed Vital Signs Vital Sign Reading Time Taken Comments Blood Pressure 133/84 05/26/2024 4:10 PM PREFLIGHT MECHANIC Pulse 69 05/26/2024 4:10 PM PREFLIGHT MECHANIC Temperature - - Respiratory Rate 18 04/02/2022 3:19 PM PREFLIGHT MECHANIC Oxygen Saturation 98% 05/07/2021 9:16 AM PREFLIGHT MECHANIC Inhaled Oxygen Concentration - - Weight 71.7 kg (158 lb) 05/26/2024 4:10 PM PREFLIGHT MECHANIC Height 157.5 cm (5' 2 ) 05/26/2024 4:10 PM PREFLIGHT MECHANIC Body Mass Index 28.9 05/26/2024 4:10 PM PREFLIGHT MECHANIC Plan of Treatment Health Maintenance Due Date Last Done Comments Depression Screening 1948 Fall Risk Assessment 1950 Hepatitis C Screening 1950 Osteoporosis Screening-Bone Density Scan 1948 Hepatitis B Screening 1966 Zoster Vaccine (1 of 2) 1998 Well Visit 65+ 2013 Pneumococcal vaccine 65+ (2 of 2 - PPSV23) 04/15/2019 04/15/2018 Covid-19 Vaccine (3 - 4-2 5 season) 2023 10/17/2020, 09/25/2020 DTaP/Tdap/Td Vaccine (6 - Td or Tdap) 02/04/2024 02/03/2014, 09/04/2001, 05/24/1997, Additional history exists Influenza Vaccine (Season Ended) 2024 12/17/2018, 02/03/2014, 01/27/2013, Additional history exists Insurance [facility] MEDICARE [facility] MEDICARE ADVANTAGE [facility] MEDICARE Care Teams Zigzag Appliquer Relationship Specialty Start Date End Date Leopoldo Velazquez MD [address] [place] [address] PCP - General Internal Medicine 05/03/21
== END 2024-08-19 14:32 | disposition home or self-care (01) ==
LOC: CHSIMG 14:32
PROVIDERS: PCP Internal Medicine; Visit Provider Internal Medicine
DX: Z78.0 Asymptomatic menopausal state (principal); M85.89 Other specified disorders of bone density and structure, multiple sites
CPT/HCPCS: 77080

== ENCOUNTER 2024-08-20 14:26 | Outpatient (CLI) | payer MEDICARE, SELFPAY ==
--- OUTSIDE RECORDS SUMMARY | 2024-08-20 14:37 | XMS_ITS | Clinical Summary ---
Author Organization [facility] [address] Address [address] [place] [address] Care Team Providers Care Hemstitcher Name Role Phone Leopoldo Velazquez MD Primary Care Provider + [phone] Allergies No known active allergies Medications atorvastatin [...] Department Care Team Description 05/27/2024 Orders Only [facility] Medical Group Orthopedic and Sports Medicine [address] [place] [phone] Wei Cantu MD Rotator cuff arthropathy of right shoulder (Primary Dx) 05/26/2024 3:00 PM NEIGHBORHOOD SERVICE CENTER DIRECTOR Office Visit [facility] Orthopedic and Sports Medicine [address] [place] [phone] Wei Cantu MD Rotator cuff arthropathy of [...] on file Legal Sex Female 10:37 AM NEIGHBORHOOD SERVICE CENTER DIRECTOR Gender Identity Not on file Sexual Orientation Not on file Obstetrics History Last Filed Vital Signs Vital Sign Reading Time Taken Comments Blood Pressure 133/84 05/26/2024 4:10 PM NEIGHBORHOOD SERVICE CENTER DIRECTOR Pulse 69 05/26/2024 4:10 PM NEIGHBORHOOD SERVICE CENTER DIRECTOR Temperature - - Respiratory Rate 18 04/02/2022 3:19 PM NEIGHBORHOOD SERVICE CENTER DIRECTOR Oxygen Saturation 98% 05/07/2021 9:16 AM NEIGHBORHOOD SERVICE CENTER DIRECTOR Inhaled Oxygen Concentration - - Weight 71.7 kg (158 lb) 05/26/2024 4:10 PM NEIGHBORHOOD SERVICE CENTER DIRECTOR Height 157.5 cm (5' 2 ) 05/26/2024 4:10 PM NEIGHBORHOOD SERVICE CENTER DIRECTOR Body Mass Index 28.9 05/26/2024 4:10 PM NEIGHBORHOOD SERVICE CENTER DIRECTOR Plan of Treatment Health Maintenance Due Date [...] 12/17/2018, 02/03/2014, 01/27/2013, Additional history exists Insurance [facility] MEDICARE [facility] MEDICARE ADVANTAGE [facility] MEDICARE Care Teams Hemstitcher Relationship Specialty Start Date End Date Leopoldo Velazquez MD [address] [place] [address] PCP - General Internal Medicine 05/03/21
--- OUTSIDE RECORDS SUMMARY | 2024-08-20 14:37 | XMS_ITS | Referral Summary ---
Author Organization [facility] [address] Address [address] [place] [address] Care Team Providers Care Practice Administrator Name Role Phone Leopoldo Velazquez MD Primary Care Provider + [phone] Encounters Date Type Department Care Team Description 05/27/2024 Orders Only [facility] Medical Group Orthopedic and Sports Medicine [address] [place] [phone] Wei Cantu MD Rotator cuff arthropathy of right shoulder (Primary Dx) 05/26/2024 3:00 PM WOODWORKING SHOP LABORER Office Visit [facility] Medical Group Orthopedic and Sports Medicine [address] [place] [phone] Wei Cantu MD Rotator cuff arthropathy [...] on file Legal Sex Female 10:37 AM WOODWORKING SHOP LABORER Gender Identity Not on file Sexual Orientation Not on file Last Filed Vital Signs Vital Sign Reading Time Taken Comments Blood Pressure 133/84 05/26/2024 4:10 PM WOODWORKING SHOP LABORER Pulse 69 05/26/2024 4:10 PM WOODWORKING SHOP LABORER Temperature - - Respiratory Rate 18 04/02/2022 3:19 PM WOODWORKING SHOP LABORER Oxygen Saturation 98% 05/07/2021 9:16 AM WOODWORKING SHOP LABORER Inhaled Oxygen Concentration - - Weight 71.7 kg (158 lb) 05/26/2024 4:10 PM WOODWORKING SHOP LABORER Height 157.5 cm (5' 2 ) 05/26/2024 4:10 PM WOODWORKING SHOP LABORER Body Mass Index 28.9 05/26/2024 4:10 PM WOODWORKING SHOP LABORER Plan of Treatment Not on file Insurance MEDICARE UHC MEDICARE ADVANTAGE [facility] Address: [address] [address] [place] [address] [facility] MEDICARE Care Teams Practice Administrator Relationship Specialty Start Date End Date Leopoldo Velazquez MD [address] [place] [address] PCP - General Internal Medicine 05/03/21
--- OUTSIDE RECORDS SUMMARY | 2024-08-20 14:37 | XMS_ITS | Encounter Summary ---
Author Organization [facility] Address [facility] [place] [address] Care Team Providers Care Ranch Helper Name Role Phone Unavailable Primary Care Provider Unavailabl e Encounter Details Date Type Department Care Team (Late st Contact Info) Description 09/12/2018 Abstract SFL CONVERSION [address] [place] [address] , Generic Conversion, Social History Tobacco Use Types Packs/Day Years Used Date Smoking Tobacco: Never Assessed Comments Unknown Sex and Gender Information Value Date Recorded Sex Assigned at Not on file Legal Sex Female 5:57 PM DOCTOR'S ASSISTANT Gender Identity Not on file Sexual Orientation Not on file documented as of this encounter Plan of Treatment Not on file documented as of this encounter Visit Diagnoses Not on filedocumented in this encounter
--- OUTSIDE RECORDS SUMMARY | 2024-08-20 14:37 | XMS_ITS | Clinical Summary ---
Author Organization [facility] Address [facility] [place] [address] Care Team Providers Care Computer Hardware Developer Name Role Phone Unavailable Primary Care Provider Unavailabl e Social History Tobacco Use Types Packs/Day Years Used Date Smoking Tobacco: Never Assessed Comments Unknown Sex and Gender Information Value Date Recorded Sex Assigned at Not on file Legal Sex Female 5:57 PM DIESEL INSTRUCTOR Gender Identity Not on file Sexual Orientation [...]
== END 2024-08-20 14:27 | disposition home or self-care (01) ==
LOC: ANHAUDASC 14:27
PROVIDERS: PCP Internal Medicine; Visit Provider Otolaryngology
DX: H90.3 Sensorineural hearing loss, bilateral (principal); H93.19 Tinnitus, unspecified ear; H69.90 Unspecified Eustachian tube disorder, unspecified ear; J01.01 Acute recurrent maxillary sinusitis
CPT/HCPCS: 92557; 92567

== ENCOUNTER 2024-09-11 06:55 | Emergency (ER) | payer MEDICARE, SELFPAY ==
--- NOTE | ~2024-09-11 | XR_ITS ---
EXAMINATION: XR ankle LT min 3V DATE: 09/11/2024 07:14 INDICATION: Left ankle sprain TECHNIQUE: Anteroposterior, oblique, mortise, and lateral views of the left ankle were obtained. COMPARISON: None. FINDINGS: Old healed fracture deformity at the distal metadiaphyseal region of the distal left fibula. Suggesti on of an additional old healed fracture of the posterior malleolus of the distal tibia. Hypertrophic changes at the distal tip of the medial malleolus also likely sequela of old trauma. No acute fractur e or acute traumatic malalignment. Mild osteoarthritis at the left ankle and multiple joints in the m id and hindfoot. Small Achilles and plantar calcaneal spurs. Soft tissue swelling about the lateral m alleolus. IMPRESSION: 1. Chronic post traumatic changes and mild polyarticular osteoarthritis at the left ankle. No acute o sseous abnormality. Reviewed, dictated and finalized at location A. IMPRESSION: 1. Chronic post traumatic changes and mild polyarticular osteoarthritis at the left ankle. No acute osseous abnormality.
[2024-09-11 06:57] VITALS: BP 148/71; PULSE 73; RESP 18; TEMP 36.4; O2SAT 96
--- OUTSIDE RECORDS SUMMARY | 2024-09-11 06:57 | XMS_ITS | Clinical Summary ---
Author Organization [facility] [address] Address [address] [place] [address] Care Team Providers Care Manufacturing Sales Representative Name Role Phone Leopoldo Velazquez MD Primary Care Provider + [phone] Allergies No known active allergies Medications atorvastatin [...] 05/07/2021 Essential hypertension 05/07/2021 Chronic anticoagulation 05/07/2021 Surgical History Surgery Date Site/Laterality Comments SHOULDER [...] on file Legal Sex Female 10:37 AM HIGH SCHOOL FOREIGN LANGUAGE TUTOR Gender Identity Not on file Sexual Orientation Not on file Obstetrics History Last Filed Vital Signs Vital Sign Reading Time Taken Comments Blood Pressure 133/84 05/26/2024 4:10 PM HIGH SCHOOL FOREIGN LANGUAGE TUTOR Pulse 69 05/26/2024 4:10 PM HIGH SCHOOL FOREIGN LANGUAGE TUTOR Temperature - - Respiratory Rate 18 04/02/2022 3:19 PM HIGH SCHOOL FOREIGN LANGUAGE TUTOR Oxygen Saturation 98% 05/07/2021 9:16 AM HIGH SCHOOL FOREIGN LANGUAGE TUTOR Inhaled Oxygen Concentration - - Weight 71.7 kg (158 lb) 05/26/2024 4:10 PM HIGH SCHOOL FOREIGN LANGUAGE TUTOR Height 157.5 cm (5' 2) 05/26/2024 4:10 PM HIGH SCHOOL FOREIGN LANGUAGE TUTOR Body Mass Index 28.9 05/26/2024 4:10 PM HIGH SCHOOL FOREIGN LANGUAGE TUTOR Plan of Treatment Health Maintenance Due Date Last Done Comments Depression Screening 1950 Fall Risk Assessment 1950 Hepatitis C Screening 1950 Osteoporosis Screening-Bone Density Scan 1948 Hepatitis B Screening 1966 Zoster Vaccine (1 of 2) 1998 Well Visit 65+ 2013 Pneumococcal vaccine 65+ (2 of 2 - PPSV23) 04/15/2019 04/15/2018 Covid-19 Vaccine (3 - 2023-2 5 season) 2023 10/17/2020, 09/25/2020 DTaP/Tdap/Td Vaccine (6 - Td or Tdap) 02/04/2024 02/03/2014, 09/04/2001, 05/24/1997, Additional history exists Influenza Vaccine (Season Ended) 2024 12/17/2018, 02/03/2014, 01/27/2013, Additional history exists Insurance [facility]IC[facility]ALTH, [facility] MED[facility] Address: [address] [place] [address] UHC MEDICARE ADVANTAGE [facility] MEDICARE Address: [address] [address] [place] [address] [facility] MEDICARE HEALTH, [facility] Address: [address] [place] [address] Care Teams Manufacturing Sales Representative Relationship Specialty Start Date End Date Leopoldo Velazquez MD [address] [place] [address] PCP - General Internal Medicine 05/03/21
--- OUTSIDE RECORDS SUMMARY | 2024-09-11 06:57 | XMS_ITS | Referral Summary ---
Author Organization [facility] [address] Address [address] [place] [address] Care Team Providers Care Shipping Assistant Name Role Phone Leopoldo Velazquez MD Primary Care Provider + [phone] Allergies No known active allergies Medications atorvastatin [...] on file Legal Sex Female 10:37 AM NETWORK OPERATIONS ANALYST Gender Identity Not on file Sexual Orientation Not on file Last Filed Vital Signs Vital Sign Reading Time Taken Comments Blood Pressure 133/84 05/26/2024 4:10 PM NETWORK OPERATIONS ANALYST Pulse 69 05/26/2024 4:10 PM NETWORK OPERATIONS ANALYST Temperature - - Respiratory Rate 18 04/02/2022 3:19 PM NETWORK OPERATIONS ANALYST Oxygen Saturation 98% 05/07/2021 9:16 AM NETWORK OPERATIONS ANALYST Inhaled Oxygen Concentration - - Weight 71.7 kg (158 lb) 05/26/2024 4:10 PM NETWORK OPERATIONS ANALYST Height 157.5 cm (5' 2) 05/26/2024 4:10 PM NETWORK OPERATIONS ANALYST Body Mass Index 28.9 05/26/2024 4:10 PM NETWORK OPERATIONS ANALYST Plan of Treatment Not on file Insurance [facility] MEDICARE ADVANTAGE [facility] MEDICARE Care Teams Shipping Assistant Relationship Specialty Start Date End Date Leopoldo Velazquez MD [address] [place] [address] PCP - General Internal Medicine 05/03/21
--- NOTE | 2024-09-11 06:59 | ED.LOWEXIN ---
HPI - Extremity Injury (Lower) General Chief Complaint: Extremity Injury, Lower Stated Complaint: lower extremity injury Time Seen by Provider: 09/11/24 06:59 Source: patient Mode of arrival: ambulatory Limitations: no limitations History of Present Illness HPI Narrative: 74-year-old female with a history of depression, 2 dyslipidemia, hypothyroidism, atrial fibrillation on Eliquis, CHEN/ for noncompliance with CPAP left ankle surgery 40 years ago developed -- left ankle pain while trying to get up on the bed 2 days ago. Frequently she has been unable to bear weight. No other injuries noted. complaint: ankle injury Onset (ago): day(s) ( Two days ago) Injury: Left: ankle Type of Injury: unknown Place: home Severity: moderate Relieving factors: immobilization Exacerbating factors: movement Associated symptoms: swelling Other symptoms: none Treatments prior to arrival: cold therapy Related Data Home Medications ?Medication ?Instructions ?Recorded ?Confirmed ?Last Taken ?Type apixaban 5 mg tablet (Eliquis) 5 mg PO BID 04/29/24 07/07/24 Unknown History atorvastatin 20 mg tablet (Lipitor) 20 mg PO DAILY 04/29/24 07/07/24 Unknown History cholecalciferol (vitamin D3) 125 125 mcg PO DAILY 04/29/24 07/07/24 Unknown History mcg (5,000 unit) capsule escitalopram oxalate 20 mg tablet 20 mg PO DAILY 04/29/24 07/07/24 Unknown History levothyroxine 50 mcg capsule 50 mcg PO DAILY 04/29/24 07/07/24 Unknown History metoprolol tartrate 25 mg tablet 12.5 mg PO BID 04/29/24 07/07/24 Unknown History potassium chloride 10 mEq 10 meq PO DAILY 04/29/24 07/07/24 Unknown History tablet,extended release (Klor-Con) denosumab 60 mg/mL subcutaneous 60 mg subcut 07/07/24 07/07/24 Unknown History syringe (Prolia) Allergies Allergy/AdvReac Type Severity Reaction Status Date / Time No Known Allergies Allergy Unknown Verified 09/11/24 07:09 Review of Systems Review of Systems: All systems reviewed & are unremarkable except as noted in HPI and below PMFSH Past Medical History Medical History (Updated 09/11/24 @ 07:31 by Benedicto Boyle MD) Osteoporosis Dyslipidemia Depression Hypothyroid Surgical History Surgical History History of ankle surgery Social History Social History Smoking status: Never smoker Second hand tobacco smoke exposure: Yes Alcohol intake: current Substance use: never Substance use type: does not use Gender identity (if verbalized by the patient): Female Agree to blood products: Yes Exam Narrative: is blood pressure 148/91. Const: General: no acute distress Nutritional Appearance: well nourished Orientation/consciousness: patient oriented x3 Limitations: no limitations HENMT: Head: normal to inspection Ears: external ears normal Face/Nose/Sinus: Normal external nose present Face and sinus: normal facial exam Mouth: Yes Normal oral and palatal mucosa present Throat: posterior oropharynx normal Eyes: Conjunctivae: conjunctivae normal Pupils: Equal, round and reactive pupils present EOM: EOMs intact bilaterally Direct Ophthalmoscopy: no photophobia Neck: Neck: normal visual inspection, no lymphadenopathy and no meningeal signs Chest: Chest palpation & inspection: normal inspection of the chest Resp: Effort & Inspection: normal respiratory effort Auscultation: clear to auscultation bilaterally Cardio: Rate: regular rate Rhythm: regular rhythm GI: GI Palp: Yes Soft to palpation Auscultation: normal bowel sounds Other: No tenderness/ rigidity /rebound. : General: Yes no CVA tenderness Back/Spine/Pelvis: Back: no CVA tenderness Skin: General skin exam: normal color Rashes: no rashes Neuro: General: patient oriented x3, moves all extremities, no meningeal signs, no focal motor deficits and CN's II-XI intact bilaterally Speech: normal speech Extrem: General: normal to inspection Other: Tenderness over the medial and lateral malleolus. swelling over the lateral malleolus. X-ray revealed old healed fracture of the distal fibula and the posterior tibia. Severe osteoarthritis around the ankle joint. Will place an ankle gel splint Psych: Mental Status: mental status grossly normal Affect: normal affect Attitude: cooperative Course Vital Signs Vital signs: Vital Signs Temperature 36.4 C 09/11/24 06:57 Pulse Rate 73 09/11/24 06:57 Respiratory Rate 18 09/11/24 06:57 Blood Pressure 148/71 H 09/11/24 06:57 Pulse Oximetry 96 06/07/25 06:57 Oxygen Delivery Room Air 09/11/24 06:57 Temperature 36.4 C 09/11/24 06:57 Pulse Rate 73 09/11/24 06:57 Respiratory Rate 18 09/11/24 06:57 Blood Pressure 148/71 H 09/11/24 06:57 Pulse Oximetry 96 09/11/24 06:57 Oxygen Delivery Room Air 09/11/24 06:57 MDM - Extremity Injury (Lower) MDM Narrative Medical decision making narrative: ankle sprain Differential Diagnosis Differential diagnosis: Likely ankle sprain and strain and ankle fracture Medical Records Attestation: I reviewed the patient's medical records. Lab Data Attestation: I reviewed the patient's lab results. Discharge Plan Discharge Clinical Impression: Ankle sprain and strain Patient Disposition: Home Condition: Stable Instructions: Antibiotic Form, Ankle Sprain (ED) Patient Language: Citizen Of [place] Prescriptions: No Action amlodipine 10 mg tablet 10 mg PO DAILY Qty: 10 0RF escitalopram oxalate 20 mg tablet 20 mg PO DAILY metoprolol tartrate 25 mg tablet 12.5 mg PO BID potassium chloride [Klor-Con 10] 10 mEq tablet extended release 10 meq PO DAILY Eliquis 5 mg tablet 5 mg PO BID atorvastatin [Lipitor] 20 mg tablet 20 mg PO DAILY levothyroxine 50 mcg capsule 50 mcg PO DAILY cholecalciferol (vitamin D3) 125 mcg (5,000 unit) capsule 125 mcg PO DAILY Prolia 60 mg/mL syringe 60 mg subcut Follow-up/Referrals: Leopoldo Velazquez MD [Primary Care Provider] - Time of Disposition: 07:32
[2024-09-11] MEDS: KETOROLAC 30 MG/ML VIAL (*BKC) IM (07:16)
--- OUTSIDE RECORDS SUMMARY | 2024-09-11 07:42 | XMS_ITS | Referral Summary ---
Author [place] [facility] [place] [address] Address [address] [place] [address] Care Team Providers Care Nutrition Aides Teacher Name Role Phone Leopoldo Velazquez MD Primary Care Provider + [phone] Allergies No known active allergies Medications atorvastatin [...] on file Legal Sex Female 10:37 AM ORACLE WMS CONSULTANT Gender Identity Not on file Sexual Orientation Not on file Last Filed Vital Signs Vital Sign Reading Time Taken Comments Blood Pressure 133/84 05/26/2024 4:10 PM ORACLE WMS CONSULTANT Pulse 69 05/26/2024 4:10 PM ORACLE WMS CONSULTANT Temperature - - Respiratory Rate 18 04/02/2022 3:19 PM ORACLE WMS CONSULTANT Oxygen Saturation 98% 05/07/2021 9:16 AM ORACLE WMS CONSULTANT Inhaled Oxygen Concentration - - Weight 71.7 kg (158 lb) 05/26/2024 4:10 PM ORACLE WMS CONSULTANT Height 157.5 cm (5' 2) 05/26/2024 4:10 PM ORACLE WMS CONSULTANT Body Mass Index 28.9 05/26/2024 4:10 PM ORACLE WMS CONSULTANT Plan of Treatment Not on file Insurance [facility] MEDICARE ADVANTAGE [facility] MEDIC[facility] Care Teams Nutrition Aides Teacher Relationship Specialty Start Date End Date Leopoldo Velazquez MD [address] [place] [address] PCP - General Internal Medicine 05/03/21
--- OUTSIDE RECORDS SUMMARY | 2024-09-11 07:42 | XMS_ITS | Clinical Summary ---
Author Organization [facility] [place] [address] Address [address] [place] [address] Care Team Providers Care County Judge Name Role Phone Leopoldo Velazquez MD Primary Care Provider + [phone] Allergies No known active allergies Medications atorvastatin [...] on file Legal Sex Female 10:37 AM COUNSELING PROGRAM LEADER Gender Identity Not on file Sexual Orientation Not on file Obstetrics History Last Filed Vital Signs Vital Sign Reading Time Taken Comments Blood Pressure 133/84 05/26/2024 4:10 PM COUNSELING PROGRAM LEADER Pulse 69 05/26/2024 4:10 PM COUNSELING PROGRAM LEADER Temperature - - Respiratory Rate 18 04/02/2022 3:19 PM COUNSELING PROGRAM LEADER Oxygen Saturation 98% 05/07/2021 9:16 AM COUNSELING PROGRAM LEADER Inhaled Oxygen Concentration - - Weight 71.7 kg (158 lb) 05/26/2024 4:10 PM COUNSELING PROGRAM LEADER Height 157.5 cm (5' 2) 05/26/2024 4:10 PM COUNSELING PROGRAM LEADER Body Mass Index 28.9 05/26/2024 4:10 PM COUNSELING PROGRAM LEADER Plan of Treatment Health Maintenance Due Date [...] 12/17/2018, 02/03/2014, 01/27/2013, Additional history exists Insurance [facility] MEDICARE UHC MEDICARE AD[facility]ANTAGE [facility] Address: [address] [address] [place] [address] [facility] MEDIC[facility] Care Teams County Judge Relationship Specialty Start Date End Date Leopoldo Velazquez MD [address] [place] [address] PCP - General Internal Medicine 05/03/21
== END 2024-09-11 07:54 | disposition home or self-care (01) ==
LOC: CHSED 07:40
PROVIDERS: Emergency Provider Internal Medicine Critical Care Medicine; PCP Internal Medicine
DX: S93.402A Sprain of unspecified ligament of left ankle, initial encounter (principal); S96.912A Strain of unspecified muscle and tendon at ankle and foot level, left foot, initial encounter; E03.9 Hypothyroidism, unspecified; I48.91 Unspecified atrial fibrillation; Z79.01 Long term (current) use of anticoagulants; X58.XXXA Exposure to other specified factors, initial encounter
CPT/HCPCS: 29515; 73610; 96372; 99283; J1885; L4350

== ENCOUNTER 2024-10-13 10:24 | Outpatient (CLI) | payer MEDICARE, SELFPAY ==
--- NOTE | ~2024-10-13 | CT_ITS ---
CT of the Abdomen and Pelvis: Indication: Abdominal pain Technique: 2.5 mm axial scans were obtained through the abdomen and pelvis following intravenous adm inistration of 100 cc of Omnipaque 350. Dose reduction technique was used on this scan by utilizing a utomated exposure control and iterative reconstruction technique. The dose-length product (DLP) was 3 52.44 mGy-cm. Findings: Scans through the lung bases are unremarkable. There is diffuse hepatic steatosis. The spleen, pancreas, gallbladder, adrenals and kidneys are withi n normal limits. No evidence of aortic aneurysm. No lymphadenopathy. No bowel obstruction or bowel wall thickening. There is no evidence to suggest acute appendicitis. Images through the pelvis were performed. Urinary bladder unremarkable. No pelvic mass seen. No ascit es. Impression: No acute abnormalities seen. Diffuse hepatic steatosis. Reviewed, dictated and finalized at [facility]. Impression: No acute abnormalities seen. Diffuse hepatic steatosis.
--- OUTSIDE RECORDS SUMMARY | 2024-10-13 10:34 | XMS_ITS | Clinical Summary ---
Author Organization [facility] [place] [address] Address [address] [place] [address] Care Team Providers Care Basket Patcher Name Role Phone Leopoldo Velazquez MD Primary Care Provider + [phone] Allergies No known active allergies Medications atorvastatin [...] on file Legal Sex Female 10:37 AM TRANSPORT TECH Gender Identity Not on file Sexual Orientation Not on file Obstetrics History Last Filed Vital Signs Vital Sign Reading Time Taken Comments Blood Pressure 133/84 05/26/2024 4:10 PM TRANSPORT TECH Pulse 69 05/26/2024 4:10 PM TRANSPORT TECH Temperature - - Respiratory Rate 18 04/02/2022 3:19 PM TRANSPORT TECH Oxygen Saturation 98% 05/07/2021 9:16 AM TRANSPORT TECH Inhaled Oxygen Concentration - - Weight 71.7 kg (158 lb) 05/26/2024 4:10 PM TRANSPORT TECH Height 157.5 cm (5' 2) 05/26/2024 4:10 PM TRANSPORT TECH Body Mass Index 28.9 05/26/2024 4:10 PM TRANSPORT TECH Plan of Treatment Health Maintenance Due Date [...] 01/27/2013, Additional history exists Insurance [facility] MEDICARE UHC MEDICARE ADVANTAGE [facility] MEDICARE Address: [address] [address] [place] [address] [facility] MEDICARE Care Teams Basket Patcher Relationship Specialty Start Date End Date Leopoldo Velazquez MD [address] [place] [address] PCP - General Internal Medicine 05/03/21
--- OUTSIDE RECORDS SUMMARY | 2024-10-13 10:34 | XMS_ITS | Encounter Summary ---
Author Organization [facility] Address [facility] [place] [address] Care Team Providers Care Product Safety Manager Name Role Phone Unavailable Primary Care Provider Unavailabl e Encounter Details Date Type Department Care Team (Late st Contact Info) Description 09/12/2018 Abstract SFL CONVERSION [address] [place] [address] , Generic Conversion, Social History Tobacco Use Types Packs/Day Years Used Date Smoking Tobacco: Never Assessed Comments Unknown Sex and Gender Information Value Date Recorded Sex Assigned at Not on file Legal Sex Female 5:57 PM TEMPLE MARKER Gender Identity Not on file Sexual Orientation Not on file documented as of this encounter Plan of Treatment Not on file documented as of this encounter Visit Diagnoses Not on filedocumented in this encounter
--- OUTSIDE RECORDS SUMMARY | 2024-10-13 10:34 | XMS_ITS | Referral Summary ---
Author Organization [facility] [place] [address] Address [address] [place] [address] Care Team Providers Care Spine Specialist Name Role Phone Leopoldo Velazquez MD Primary Care Provider + [phone] Allergies No known active allergies Medications atorvastatin [...] on file Legal Sex Female 10:37 AM STEAM SHOVEL OPERATING ENGINEER Gender Identity Not on file Sexual Orientation Not on file Last Filed Vital Signs Vital Sign Reading Time Taken Comments Blood Pressure 133/84 05/26/2024 4:10 PM STEAM SHOVEL OPERATING ENGINEER Pulse 69 05/26/2024 4:10 PM STEAM SHOVEL OPERATING ENGINEER Temperature - - Respiratory Rate 18 04/02/2022 3:19 PM STEAM SHOVEL OPERATING ENGINEER Oxygen Saturation 98% 05/07/2021 9:16 AM STEAM SHOVEL OPERATING ENGINEER Inhaled Oxygen Concentration - - Weight 71.7 kg (158 lb) 05/26/2024 4:10 PM STEAM SHOVEL OPERATING ENGINEER Height 157.5 cm (5' 2) 05/26/2024 4:10 PM STEAM SHOVEL OPERATING ENGINEER Body Mass Index 28.9 05/26/2024 4:10 PM STEAM SHOVEL OPERATING ENGINEER Plan of Treatment Not on file Insurance INCLUDE 234 BEDS AT THE [facility] MEDICARE Address: [place] [id number] [place] [id number] [facility] ADVANTAGE COUNTS INCLUDE 234 BEDS AT THE [facility] MEDICARE INCLUDE 234 BEDS AT THE [facility] MEDICARE Address: [address] [place] [address] Care Teams Spine Specialist Relationship Specialty Start Date End Date Leopoldo Velazquez MD [address] [place] [address] PCP - General Internal Medicine 05/03/21
--- OUTSIDE RECORDS SUMMARY | 2024-10-13 10:34 | XMS_ITS | Clinical Summary ---
Author Organization [facility] Address [facility] [place] [address] Care Team Providers Care Analog Circuit Designer Name Role Phone Unavailable Primary Care Provider Unavailabl e Social History Tobacco Use Types Packs/Day Years Used Date Smoking Tobacco: Never Assessed Comments Unknown Sex and Gender Information Value Date Recorded Sex Assigned at Not on file Legal Sex Female 5:57 PM CHANGE BOOTH ATTENDANT Gender Identity Not on file Sexual Orientation [...]
[2024-10-13 10:58] LABS: Estimated Glomerular Filt Rate > 60
== END 2024-10-13 10:25 | disposition home or self-care (01) ==
LOC: CHSIMG 10:27
PROVIDERS: PCP Internal Medicine; Visit Provider Internal Medicine
DX: R19.7 Diarrhea, unspecified (principal); R10.9 Unspecified abdominal pain; K76.0 Fatty (change of) liver, not elsewhere classified
CPT/HCPCS: 74177; Q9967

== ENCOUNTER 2025-02-25 12:11 | Outpatient (CLI) | payer MEDICARE, SELFPAY ==
[2025-02-25 12:24] LABS: Hematocrit 42.3 % (35.0-42.0); Hemoglobin 13.8 g/dL (11.7-13.8); Mean Corpuscular HGB Conc 32.6 g/dL (32-36); Mean Corpuscular Hemoglobin 29.2 pg (27.0-31.0); Mean Corpuscular Volume 89.4 fL (78.0-102.0); Platelet Count Result 269 K/mm3 (150-420); Red Blood Count 4.73 M/mm3 (4.20-5.40); White Blood Count 7.5 K/mm3 (4.8-10.8)
[2025-02-25 12:26] LABS: Appearance Urine Clear (Clear); Glucose Urine UA Negative (Negative); Leukocyte Esterase Ur 2+ (Negative); Nitrate Urine Negative (Negative); Specific Grav Ur >= 1.030 (1.010-1.020)
[2025-02-25 12:37] LABS: Add Urine Microscopic? YES
[2025-02-25 12:38] LABS: Hemoglobin A1C 5.8 % (<5.7)
[2025-02-25 13:00] LABS: Alanine Aminotransferase 47 U/L (6-35); Albumin Level 4.8 g/dL (3.5-5.1); Alkaline Phosphatase 102 U/L (38-126); Anion Gap 13 mmol/L (4-12); Aspartate Amino Transferase 38 U/L (14-36); Bilirubin,Total 0.8 mg/dL (0.2-1.3); Blood Urea Nitrogen 20 mg/dL (7-17); Calcium 9.6 mg/dL (8.4-10.2); Carbon Dioxide 24 mmol/L (22-30); Chloride 104 mmol/L (98-107); Cholesterol 204 mg/dL (0-200); Creatine Kinase 46 U/L (30-135); Estimated Glomerular Filt Rate > 60; Glucose 115 mg/dL (65-110); HDL Direct 74 mg/dL; Osmolality Calculated 295 mOsm/kg (285-295); Potassium 4.2 mmol/L (3.4-5.0); Sodium 141 mmol/L (137-145); Total Protein 7.1 g/dL (6.3-8.2); Triglycerides 189 mg/dL (<150)
[2025-02-25 13:16] LABS: Free T4 Free Thyroxine 1.29 ng/dL (0.78-2.19)
[2025-02-25 13:17] LABS: Free T3 3.61 pg/mL (2.18-3.98)
[2025-02-25 13:30] LABS: Thyroid Stimulating Hormone 2.560 uIU/mL (0.465-4.680)
== END 2025-02-25 12:12 | disposition home or self-care (01) ==
LOC: CHSLAB 12:13
PROVIDERS: PCP Internal Medicine; Visit Provider Internal Medicine
DX: J32.4 Chronic pansinusitis (principal); R73.01 Impaired fasting glucose; I10 Essential (primary) hypertension; E03.4 Atrophy of thyroid (acquired); E78.2 Mixed hyperlipidemia
CPT/HCPCS: 36415; 80053; 80061; 81001; 82550; 83036; 84439; 84443; 84481; 85027